=== PATIENT | female | born 1965 | race Caucasian/White ===

== ENCOUNTER 2022-05-19 01:48 | Emergency (ER) | payer BC, SELFPAY ==
--- NOTE | 2022-05-19 | ECG_ITS ---
Test Reason : sob Blood Pressure : / mmHG Vent. Rate : 095 BPM Atrial Rate : 095 BPM P-R Int : 150 ms QRS Dur : 080 ms QT Int : 350 ms P-R-T Axes : 034 000 028 degrees QTc Int : 439 ms Normal sinus rhythm Nonspecific ST abnormality Borderline ECG No previous ECGs available Referred By: Generic ED Physician Electronically Signed By:JERAMIE AMBROCIO
--- NOTE | ~2022-05-19 | XR_ITS ---
EXAMINATION: XR CHEST CLINICAL INFORMATION: Short of breath COMPARISON: None TECHNIQUE: Frontal view of the chest was obtained. FINDINGS: The lungs are well expanded. There is no focal consolidation, edema, or effusion. No pneumothorax. The cardiomediastinal silhouette is within normal limits. No acute osseous abnormality. XR/XR chest 1V IMPRESSION: Clear lungs.
[2022-05-19 02:00] VITALS: BP 189/122; PULSE 98; RESP 20; TEMP 36.8; O2SAT 100; BMI 38.9
--- NOTE | 2022-05-19 02:50 | ED.GENADULT ---
HPI - General Adult General Chief complaint: General Medical Stated complaint: chest tightening ? shaky, lung & back pain Time Seen by Provider: 05/19/22 02:42 Source: patient Mode of arrival: ambulatory Limitations: no limitations History of Present Illness HPI narrative: Patient comes to the emergency room complaining of 5 days of anxiety, epigastric burning sensation. Patient states that she has been under a lot of stress, patient's was diagnosed approximately 3 months ago with Guillain-[place] and is currently in a rehab facility. Also, patient was diagnosed with COVID-19 2 weeks ago. Patient states that tonight she was very stressed because her teenage daughter was on her 1st date Related Data Allergies Allergy/AdvReac Type Severity Reaction Status Date / Time No Known Allergies Allergy Verified 05/19/22 02:03 [facility] Social History Social History Advance Directives: No Advance Directives Information Provided: Yes Physical Exam ED Vital Signs: Vital Signs - 24 hr 05/19/22 02:00 05/19/22 03:14 Temperature 98.2 F 98.2 F Pulse Rate 98 78 Respiratory Rate 20 16 Blood Pressure 189/122 H 175/93 H Pulse Oximetry 100 98 Oxygen Delivery Method Room Air Room Air BMI result Body Mass Index 38.9 Const Other: Appearance: Alert. Oriented X3. No acute distress. Eyes: Pupils equal, round and reactive to light. ENT: Pharynx normal. Neck: Normal inspection. Neck supple. No lymph nodes noted. No crepitus CVS: Normal heart rate and rhythm. Pulses normal. Normal S1 and S2 Respiratory: No respiratory distress. Breath sounds normal. No Wheezing. No rales Abdomen: Soft and nontender. No rigidity. No distention. Skin: Skin warm and dry. Normal skin color. Normal skin turgor. Extremities: No lower extremity edema. No Lacerations. No Rash Neuro: Oriented X 3. No motor deficit. No sensory deficit. Moving all extremities. No slurred speech. CN 2 through 12 grossly intact Psych: calm, cooperative, anxious Course Course Course Narrative: Labs and imaging pending. Patient seems to have a lot of anxiety I discussed the labs and imaging with the patient, after discussing the results with the patient, patient states that she feels more relaxed. No symptoms at this time. Medical Decision Making Lab Data Result diagrams: 05/19/22 03:28 08/13/22 03:28 Labs: Lab Results 05/19/22 05/19/22 05/19/22 Range/Units 03:28 03:28 03:28 WBC 10.1 (4.8-10.8) X10*3/uL RBC 4.86 (4.20-5.50) X10*6/uL Hgb 13.3 (12.0-16.0) g/dl Hct 40.8 (37.0-47.0) % MCV 84.0 (80.0-98.0) fL MCH 27.4 (27.0-33.0) pg MCHC 32.6 (31.0-35.0) g/dl RDW 13.1 (11.0-16.0) % Plt Count 238 (160-400) X10*3/uL MPV 9.0 L (9.4-12.3) fL Immature Gran % (Auto) 0.6 H (0.0-0.4) % Neut % (Auto) 76.2 H (45-73) % Lymph % (Auto) 14.0 L (20-40) % [place] % (Auto) 6.2 (2-11) % Eos % (Auto) 2.7 (0-4) % Baso % (Auto) 0.3 (0-2) % Lymph # (Auto) 1.4 (1.2-4.9) X10*3/uL [place] # (Auto) 0.6 (0.1-1.2) X10*3/uL Eos # (Auto) 0.3 (0.0-0.4) X10*3/uL Baso # (Auto) 0.0 (0.0-0.2) X10*3/uL Abs Immat Gran (auto) 0.06 H (0.00-0.03) X10*3/uL Absolute Neuts (auto) 7.7 (2.0-8.3) x10*3/uL Absolute Nucleated RBC 0.000 (0.0-0.012) X10*3/uL Nucleated RBC % (auto) 0.0 (0.0-0.2) /100WBC Sodium 144 (135-145) mmol/L Potassium 4.3 (3.3-5.1) mmol/L Chloride 109 H (96-108) mmol/L Carbon Dioxide 24 (22-29) mmol/L Anion Gap 15 (12-20) BUN 18 H (9-16) mg/dL Creatinine 0.78 (0.5-1.4) mg/dL Estim Creat Clear Calc 90.7 Estimated GFR > 60 Random Glucose 132 H (60-115) mg/dL Calcium 8.8 (8.4-10.2) mg/dL Total Bilirubin 0.6 (0.0-1.0) mg/dL Direct Bilirubin 0.2 (0.0-0.5) mg/dL AST 16 (5-31) U/L ALT 21 (0-31) U/L Alkaline Phosphatase 76 (39-117) U/L Troponin I High Sens < 3.5 (<3.5-17.0) ng/L Total Protein 6.6 (6.5-8.0) g/dL Albumin 4.0 (3.5-5.0) g/dL COVID-19 (CON) (Negative) COVID-19 Clin Com 05/19/22 Range/Units 03:28 WBC (4.8-10.8) X10*3/uL RBC (4.20-5.50) X10*6/uL Hgb (12.0-16.0) g/dl Hct (37.0-47.0) % MCV (80.0-98.0) fL MCH (27.0-33.0) pg MCHC (31.0-35.0) g/dl RDW (11.0-16.0) % Plt Count (160-400) X10*3/uL MPV (9.4-12.3) fL Immature Gran % (Auto) (0.0-0.4) % Neut % (Auto) (45-73) % Lymph % (Auto) (20-40) % [place] % (Auto) (2-11) % Eos % (Auto) (0-4) % Baso % (Auto) (0-2) % Lymph # (Auto) (1.2-4.9) X10*3/uL [place] # (Auto) (0.1-1.2) X10*3/uL Eos # (Auto) (0.0-0.4) X10*3/uL Baso # (Auto) (0.0-0.2) X10*3/uL Abs Immat Gran (auto) (0.00-0.03) X10*3/uL Absolute Neuts (auto) (2.0-8.3) x10*3/uL Absolute Nucleated RBC (0.0-0.012) X10*3/uL Nucleated RBC % (auto) (0.0-0.2) /100WBC Sodium (135-145) mmol/L Potassium (3.3-5.1) mmol/L Chloride (96-108) mmol/L Carbon Dioxide (22-29) mmol/L Anion Gap (12-20) BUN (9-16) mg/dL Creatinine (0.5-1.4) mg/dL Estim Creat Clear Calc Estimated GFR Random Glucose (60-115) mg/dL Calcium (8.4-10.2) mg/dL Total Bilirubin (0.0-1.0) mg/dL Direct Bilirubin (0.0-0.5) mg/dL AST (5-31) U/L ALT (0-31) U/L Alkaline Phosphatase (39-117) U/L Troponin I High Sens (<3.5-17.0) ng/L Total Protein (6.5-8.0) g/dL Albumin (3.5-5.0) g/dL COVID-19 (CON) Negative (Negative) COVID-19 Clin Com See Note Imaging Data Chest x-ray: Radiologist's impression: FINDINGS: The lungs are well expanded. There is no focal consolidation, edema, or effusion. No pneumothorax. The cardiomediastinal silhouette is within normal limits. No acute osseous abnormality. XR/XR chest 1V IMPRESSION: Clear lungs Discharge Plan Discharge Clinical Impression: Anxiety, Atypical chest pain Patient Disposition: Home, Self-Care Instructions: Anxiety (ED), Chest Pain (DC), Diet for Stomach Ulcers and Gastritis (ED) Additional Instructions: Please follow-up with your primary care physician tomorrow. If you have any worsening or new symptoms, please return to the emergency room or call 911
[2022-05-19 03:14] VITALS: BP 175/93; PULSE 78; RESP 16; TEMP 36.8; O2SAT 98
[2022-05-19 03:35] LABS: MANUAL DIFF FLAG NO
[2022-05-19 03:36] LABS: Basophils Percent Auto 0.3 % (0-2); Eosinophils Absolute Auto 0.3 X10*3/uL (0.0-0.4); Eosinophils Percent Auto 2.7 % (0-4); Hematocrit 40.8 % (37.0-47.0); Hemoglobin 13.3 g/dl (12.0-16.0); Imm Gran Abs Auto 0.06 X10*3/uL (0.00-0.03); Imm Gran Pct Auto 0.6 % (0.0-0.4); Lymphocytes Absolute Auto 1.4 X10*3/uL (1.2-4.9); Mean Corpuscular HGB Conc 32.6 g/dl (31.0-35.0); Mean Corpuscular Hemoglobin 27.4 pg (27.0-33.0); Monocytes Absolute Auto 0.6 X10*3/uL (0.1-1.2); Monocytes Percent Auto 6.2 % (2-11); Neutrophils Absolute Auto 7.7 x10*3/uL (2.0-8.3); Neutrophils Percent Auto 76.2 % (45-73); Platelet Count 238 X10*3/uL (160-400); Red Blood Count 4.86 X10*6/uL (4.20-5.50); Red Cell Distribution Width 13.1 % (11.0-16.0); White Blood Count 10.1 X10*3/uL (4.8-10.8)
[2022-05-19 03:49] LABS: COVID-19 Test Negative (Negative)
[2022-05-19 03:55] LABS: Alanine Aminotransferase 21 U/L (0-31); Alkaline Phosphatase 76 U/L (39-117); Anion Gap 15 (12-20); Aspartate Amino Transferase 16 U/L (5-31); Bilirubin Direct 0.2 mg/dL (0.0-0.5); Bilirubin Total 0.6 mg/dL (0.0-1.0); Blood Urea Nitrogen 18 mg/dL (9-16); Calcium 8.8 mg/dL (8.4-10.2); Carbon Dioxide 24 mmol/L (22-29); Chloride 109 mmol/L (96-108); Creatinine Clr Calc Pharmacy 90.7; Estimated Glomerular Filt Rate > 60; Glucose Random 132 mg/dL (60-115); Potassium 4.3 mmol/L (3.3-5.1); Sodium 144 mmol/L (135-145); Total Protein 6.6 g/dL (6.5-8.0)
[2022-05-19 03:56] LABS: Troponin-I High Sensitivity < 3.5 ng/L (<3.5-17.0)
[2022-05-19 04:39] VITALS: BP 133/81; PULSE 80; RESP 16; TEMP 36.6; O2SAT 98
== END 2022-05-19 04:40 | disposition home or self-care (01) ==
PROVIDERS: Emergency Provider Emergency Medicine; PCP Internal Medicine
DX: F41.9 Anxiety disorder, unspecified (principal); R07.89 Other chest pain; Z20.822 Contact with and (suspected) exposure to COVID-19
CPT/HCPCS: 71045; 80048; 80076; 84484; 85025; 87635; 93005; 99283; 99284

== ENCOUNTER 2022-10-16 08:42 | Outpatient (REF) | payer BC, SELFPAY ==
[2022-10-16 11:19] LABS: MANUAL DIFF FLAG NO
[2022-10-16 11:36] LABS: Basophils Percent Auto 0.4 % (0-2); Eosinophils Absolute Auto 0.2 X10*3/uL (0.0-0.4); Hematocrit 45.3 % (37.0-47.0); Imm Gran Abs Auto 0.04 X10*3/uL (0.00-0.03); Imm Gran Pct Auto 0.6 % (0.0-0.4); Lymphocytes Absolute Auto 1.2 X10*3/uL (1.2-4.9); Lymphocytes Percent Auto 17.5 % (20-40); Mean Corpuscular HGB Conc 30.9 g/dl (31.0-35.0); Mean Corpuscular Hemoglobin 26.9 pg (27.0-33.0); Mean Corpuscular Volume 86.9 fL (80.0-98.0); Mean Platelet Volume 9.6 fL (9.4-12.3); Monocytes Absolute Auto 0.4 X10*3/uL (0.1-1.2); Monocytes Percent Auto 5.6 % (2-11); Neutrophils Absolute Auto 5.1 x10*3/uL (2.0-8.3); Neutrophils Percent Auto 72.9 % (45-73); Platelet Count 259 X10*3/uL (160-400); Red Blood Count 5.21 X10*6/uL (4.20-5.50); Red Cell Distribution Width 13.2 % (11.0-16.0)
[2022-10-16 11:41] LABS: Appearance Urine Clear; Color Urine Yellow; Glucose Urine UA Negative (Negative); Leukocyte Esterase Urine Negative (Negative); Nitrite Urine Negative (Negative); PH 5.5 (5.0-9.0); Specific Gravity - Urine 1.015 (1.005-1.025); Urine Blood Negative (Negative); Urine Ketones Negative (Negative); Urine Protein Trace mg/dL (Neg-Trace)
[2022-10-16 11:42] LABS: Alanine Aminotransferase 25 U/L (0-31); Albumin Level 4.4 g/dL (3.5-5.0); Alkaline Phosphatase 84 U/L (39-117); Anion Gap 14 (12-20); Aspartate Amino Transferase 19 U/L (5-31); Bilirubin Total 0.7 mg/dL (0.0-1.0); Blood Urea Nitrogen 13 mg/dL (9-16); Calcium 9.2 mg/dL (8.4-10.2); Carbon Dioxide 27 mmol/L (22-29); Chloride 107 mmol/L (96-108); Cholesterol 258 mg/dL; Estimated Glomerular Filt Rate > 60; Glucose Fasting 107 mg/dL (60-99); HDL Cholesterol 55 mg/dL; LDL Cholesterol Calculated 181 mg/dl; Potassium 4.4 mmol/L (3.3-5.1); Sodium 144 mmol/L (135-145); Total Protein 7.3 g/dL (6.5-8.0); Triglycerides 110 mg/dL
[2022-10-16 11:45] LABS: Bacteria Urine Trace (None Seen); Hyaline Casts Urine 0-2 /LPF (0-2); RBC Urine 0-2 /HPF (0-2); WBC Urine 0-5 /HPF (0-5)
[2022-10-16 11:56] LABS: Estimated Average Glucose 111 mg/dL; Hemoglobin A1c % 5.5 %
[2022-10-16 12:04] LABS: TSH reflex Free T4 2.44 uIU/mL (0.32-4.0)
== END 2022-10-16 08:43 | disposition home or self-care (01) ==
LOC: HO.HMGCLDS 08:42
PROVIDERS: PCP Internal Medicine; Visit Provider Internal Medicine
DX: Z00.00 Encounter for general adult medical examination without abnormal findings (principal); I10 Essential (primary) hypertension
CPT/HCPCS: 36415; 80053; 80061; 81001; 83036; 84443; 85025

== ENCOUNTER → 2022-10-30 15:53 | Outpatient (REF) | payer BC, SELFPAY | LOC: HO.SL 15:53 | PROVIDERS: PCP Internal Medicine; Visit Provider Internal Medicine | DX: G47.33 Obstructive sleep apnea (adult) (pediatric) (principal); I10 Essential (primary) hypertension | CPT/HCPCS: 95806 ==

== ENCOUNTER 2022-11-10 10:37 | Outpatient (REF) | payer BC, SELFPAY ==
--- NOTE | ~2022-11-10 | MM_ITS ---
EXAMINATION: MM SCREENING DIGITAL BREAST TOMOSYNTHESIS, BILATERAL CLINICAL INFORMATION: Screening. Asymptomatic. The lifetime risk of breast cancer based on the Tyrer-Cuzick Model is 9.9%. COMPARISON: Mammography: July 06, 2020 and studies dating back to October 21, 2013 TECHNIQUE: Digital breast tomosynthesis is performed in both the craniocaudal and mediolateral oblique views along with computer-aided detection (CAD). Synthesized 2D images are generated from the tomosynthesis. Cleavage view also performed. FINDINGS: The breasts are heterogeneously dense, which may obscure small masses (ACR BI-RADS breast composition Category c). There are no significant masses, abnormal calcifications, or other abnormalities. MM/MM tomosynthesis screening BI IMPRESSION: No significant changes ASSESSMENT: BI-RADS 1: Negative RECOMMENDATION: Routine annual mammography screening. This patient's information was entered into a reminder system with a target due date for their next mammogram.
== END 2022-11-10 10:38 | disposition home or self-care (01) ==
LOC: HO.MAMMO 10:37
PROVIDERS: PCP Internal Medicine; Visit Provider Internal Medicine
DX: Z12.31 Encounter for screening mammogram for malignant neoplasm of breast (principal)
CPT/HCPCS: 77063; 77067

== ENCOUNTER → 2022-12-14 07:46 | Outpatient (BNVA) | payer BC, SELFPAY | PROVIDERS: PCP Internal Medicine; Visit Provider Nurse Practitioner Family | DX: Z13.89 Encounter for screening for other disorder (principal) ==

== ENCOUNTER 2022-12-26 07:54 | Outpatient (REF) | payer BC, SELFPAY ==
[2022-12-26 12:38] LABS: Alanine Aminotransferase 27 U/L (0-31); Albumin Level 4.1 g/dL (3.5-5.0); Alkaline Phosphatase 87 U/L (39-117); Anion Gap 12 (12-20); Aspartate Amino Transferase 20 U/L (5-31); Blood Urea Nitrogen 14 mg/dL (9-16); Carbon Dioxide 30 mmol/L (22-29); Chloride 108 mmol/L (96-108); Cholesterol 229 mg/dL; Estimated Glomerular Filt Rate > 60; Glucose Fasting 100 mg/dL (60-99); HDL Cholesterol 52 mg/dL; LDL Cholesterol Calculated 158 mg/dl; Potassium 4.5 mmol/L (3.3-5.1); Sodium 145 mmol/L (135-145); Total Protein 6.6 g/dL (6.5-8.0); Triglycerides 98 mg/dL
== END 2022-12-26 07:55 | disposition home or self-care (01) ==
LOC: HO.HMGCLDS 07:54
PROVIDERS: PCP Internal Medicine; Visit Provider Internal Medicine
DX: I10 Essential (primary) hypertension (principal); E78.5 Hyperlipidemia, unspecified
CPT/HCPCS: 36415; 80053; 80061

== ENCOUNTER → 2023-03-18 09:28 | Outpatient (BNVA) | payer BC, SELFPAY | PROVIDERS: PCP Internal Medicine; Visit Provider Nurse Practitioner Family ==

== ENCOUNTER 2023-03-27 07:40 | Outpatient (REF) | payer BC, SELFPAY ==
[2023-03-27 11:14] LABS: MANUAL DIFF FLAG NO
[2023-03-27 11:23] LABS: Basophils Percent Auto 0.3 % (0-2); Eosinophils Absolute Auto 0.3 X10*3/uL (0.0-0.4); Hematocrit 43.1 % (37.0-47.0); Hemoglobin 13.6 g/dl (12.0-16.0); Imm Gran Abs Auto 0.03 X10*3/uL (0.00-0.03); Imm Gran Pct Auto 0.5 % (0.0-0.4); Lymphocytes Absolute Auto 1.6 X10*3/uL (1.2-4.9); Lymphocytes Percent Auto 26.3 % (20-40); Mean Corpuscular HGB Conc 31.6 g/dl (31.0-35.0); Mean Corpuscular Hemoglobin 27.7 pg (27.0-33.0); Mean Corpuscular Volume 87.8 fL (80.0-98.0); Mean Platelet Volume 9.8 fL (9.4-12.3); Monocytes Absolute Auto 0.4 X10*3/uL (0.1-1.2); Monocytes Percent Auto 6.4 % (2-11); Neutrophils Absolute Auto 3.9 x10*3/uL (2.0-8.3); Neutrophils Percent Auto 62.5 % (45-73); Platelet Count 235 X10*3/uL (160-400); Red Blood Count 4.91 X10*6/uL (4.20-5.50); Red Cell Distribution Width 13.3 % (11.0-16.0); White Blood Count 6.2 X10*3/uL (4.8-10.8)
[2023-03-27 12:15] LABS: Estimated Average Glucose 105 mg/dL; Hemoglobin A1c % 5.3 %
[2023-03-27 12:19] LABS: Alanine Aminotransferase 25 U/L (0-31); Albumin Level 4.1 g/dL (3.5-5.0); Alkaline Phosphatase 79 U/L (39-117); Anion Gap 12 (12-20); Aspartate Amino Transferase 18 U/L (5-31); Bilirubin Total 0.9 mg/dL (0.0-1.0); Blood Urea Nitrogen 20 mg/dL (9-16); Calcium 9.1 mg/dL (8.4-10.2); Carbon Dioxide 27 mmol/L (22-29); Chloride 109 mmol/L (96-108); Cholesterol 202 mg/dL; Estimated Glomerular Filt Rate > 60; Glucose Fasting 96 mg/dL (60-99); HDL Cholesterol 45 mg/dL; LDL Cholesterol Calculated 126 mg/dl; Sodium 144 mmol/L (135-145); Total Protein 7.1 g/dL (6.5-8.0); Triglycerides 156 mg/dL; Vitamin D 25-OH Total 18.9 ng/mL (>30)
== END 2023-03-27 07:41 | disposition home or self-care (01) ==
LOC: HO.HMGCLDS 07:40
PROVIDERS: PCP Internal Medicine; Visit Provider Internal Medicine
DX: I10 Essential (primary) hypertension (principal); E78.5 Hyperlipidemia, unspecified; E66.3 Overweight
CPT/HCPCS: 36415; 80053; 80061; 82306; 83036; 85025

== ENCOUNTER 2023-05-14 11:25 | Outpatient (AMB) | payer BC, SELFPAY ==
--- NOTE | 2023-05-14 11:27 | A.OFFVIS_ITS ---
Intake Vital Signs 05/14/23 11:34 Height 5 ft 3 in Weight 226 lb BMI 40.0 BP 144/78 H Blood Pressure Location Lt brachial Position Sitting Pulse 76 Intake Visit Reasons: Colonoscopy screening Intake Note: Patient new consult for pre colonoscopy screening. Patient cc: acid reflex with burning sensation on and off, loose stool with bloody hemorrhoid. 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 Accompanied by: Spouse Allergies VENFLAXINE Adverse Reaction (Intermediate, Uncoded 03/29/23 09:52) Palpitations, NAUSEA Medication List - Last Reconciled 05/14/23 by Myesha Sesay PA-C CPAP (CPAP Machine/Device) As directed ibuprofen (Motrin IB) 200 mg PO Q6H PRN loratadine 10 mg PO DAILY olmesartan 10 mg (2 x 5 mg) PO DAILY omeprazole 20 mg PO DAILY HPI HPI Comments History of Present Illness Details A very anxious 57-year-old female referred for index screening colonoscopy She has acid reflux/ waterbrash- RAVEN- Cpap-faithfully appetite good- normal bowels She has extreme anxiety-had tried medication however d/cd to side effects declines She has no nausea, vomiting hematemesis, hematochezia fever chills Her is present very supportive [facility] Surgical History [place] teeth removed Family History Mother Diabetes HTN (hypertension) Afib Father Diabetes HTN (hypertension) Hyperlipidemia Aortic aneurysm Family/Other Asthma Social History 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:: , 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, Housing: House Alcohol intake: current Alcohol intake frequency: holidays/special occasions only Patient Tobacco Use Status: Never used Tobacco e-Cigarette/Vaping Use: Never Used service: No Current occupational status: employed Cognitive needs: No Hearing needs: No Vision needs: Yes Review of Systems Const All systems reviewed & are unremarkable except as noted in HPI and below Card Denies chest pain and Denies dyspnea Resp Denies dyspnea GI Denies abdominal pain, Denies change in bowel habits, Reports heartburn, Denies nausea and Denies vomiting Skin/Breast Reports lesions Psych Reports anxiety Physical Exam Vital Signs: Last Vital Signs Pulse 76 05/14/23 11:34 BP 144/78 H 05/14/23 11:34 BMI result Body Mass Index 40.0 Const General: cooperative, healthy appearing, comfortable and no acute distress Orientation/consciousness: patient oriented x3 Limitations: no limitations Eyes Sclerae: sclerae normal Resp Effort & Inspection: normal respiratory effort and able to speak in complete sentences Auscultation: clear to auscultation bilaterally and no wheezes Cardio Rate: regular rate Rhythm: regular rhythm Heart sounds: S1 normal heart sound present and S2 normal heart sound present GI Palpation (GI): Soft to palpation and nontender Auscultation: normal bowel sounds Rectal Exam - Female: deferred Skin Lesions: lesion noted (Multiple nevi) Neuro General: patient oriented x3 Extrem General: Yes full ROM Psych Appearance: well kempt Mental Status: mental status grossly normal Speech and movement: Clear speech present Affect: Anxious affect present Attitude: cooperative Thought process: Normal thought process present Thought content: Normal thought content present Insight: Good insight present (Psych) Judgement: Good judgement present (Psych) Assessment & Plan Assessment & Plan (1) GERD (gastroesophageal reflux disease): Comment: Years acid reflux,-despite PPI though improved Code(s): K21.9 - Gastro-esophageal reflux disease without esophagitis Plan: EGD r/o pud, nonulcer dyspepsia, esophagitis, other endoscopic findings to account for her symptoms (2) Encounter for screening colonoscopy: Code(s): Z12.11 - Encounter for screening for malignant neoplasm of colon Plan: Index screening colonoscopy MiraLax Gatorade prep Plan EGD/ Colonoscopy-anesthesia consult, CPAP Orders: Orders EGD/[place] Combo - GI Use Only Today Medications: New bisacodyl (Dulcolax (bisacodyl)) Take 4 tablets by mouth at 12:00pm the day before your procedure. 20 mg (4 x 5 mg) PO ONCE 1 day 4 tabs 0RF colonoscopy prep Z12.11 - Encounter for screening for malignant neoplasm of colon polyethylene glycol 3350 (Miralax) Take as directed by mouth the day before your procedure. 238 grams PO ONCE 1 day PRN 238 grams 0RF laxative effect Patient Instructions: One very pleasant, extremely anxious 57-year-old female referred for index screening colonoscopy presents with persistent GERD despite PPI Detailed discussion about procedures, need for escorted due to anesthesia rare risks, reinforced importance, Many questions asked, reassured-very receptive present very supportive Encouraged to call with questions or concerns EGD/colon--anesthesia consult- cpap- Coding Level of Care Code New Pt Level 3 (72887) Diagnoses GERD (gastroesophageal reflux disease) K21.9 Encounter for screening colonoscopy Z12.11 Time Spent (min) 50
[2023-05-14 11:34] VITALS: BP 144/78; PULSE 76; BMI 40.0
== END 2023-05-14 13:31 | disposition home or self-care (01) ==
LOC: HO.HGIW 11:25
PROVIDERS: PCP Internal Medicine; Visit Provider Physician Assistant
DX: K21.9 Gastro-esophageal reflux disease without esophagitis (principal); Z01.818 Encounter for other preprocedural examination; Z12.11 Encounter for screening for malignant neoplasm of colon
CPT/HCPCS: 99203

== ENCOUNTER → 2023-05-14 11:25 | Outpatient (BNVA) | payer BC, SELFPAY | PROVIDERS: PCP Internal Medicine; Visit Provider Physician Assistant ==

== ENCOUNTER 2023-08-06 12:52 | Outpatient (AMB) | payer BC, SELFPAY ==
[2023-08-06 13:04] VITALS: BP 130/84; PULSE 78; BMI 39.8
--- NOTE | 2023-08-06 13:04 | MHC.OFFVIS ---
Intake Vital Signs 08/06/23 13:04 Height 5 ft 3 in Weight 224 lb 13.944 oz BMI 39.8 BP 130/84 Blood Pressure Location Lt brachial Position Sitting Pulse 78 Intake Visit Reasons: NPV/Chest Pain/J. 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 More recently the blood pressure has been better controlled on olmesartan therapy 10 mg. She does complain of a occasional orthostatic lightheadedness. Patient has had no syncopal episodes. She had a lot of stress in her life recently including illness of her who had GB syndrome and was paralyzed requiring long treatment. She also had that thought 1 of her colleagues in the school sudden cardiac that due to myocardial infarction. She is concerned about overall heart health. She has been having symptoms of palpitations where she gets rapid heart rate. She is concerned about atrial fibrillation due to her mom's history of atrial fibrillation. She is also concerned about coronary artery disease given her dad's premature CAD. She has not had any exertional chest pain. She noticed exertional shortness of breath but this is not unusual. She has been trying to lose weight with eating better. LDL cholesterol is improved marginally. She does have sleep apnea and currently uses CPAP machine. 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, Housing: House Alcohol intake: current Alcohol intake frequency: holidays/special occasions only Patient Tobacco Use Status: Never used Tobacco e-Cigarette/Vaping Use: Never Used service: No Current occupational status: employed Cognitive needs: No Hearing needs: No Vision needs: Yes Review of Systems Const Denies chills, Denies fatigue, Denies fever(s), Denies frequent falls, Denies weakness, Denies weight gain and Denies weight loss Eyes Denies loss of vision ENT Denies dizziness Card Denies chest pain, Denies leg edema, Denies lightheadedness, Denies palpitations, Denies dyspnea, Denies dyspnea on exertion, Denies orthopnea and Denies other (loss of consciousness) Resp Denies cough, Denies dyspnea, Denies dyspnea on exertion and Denies wheezing GI Denies hematochezia and Denies change in stool character Denies urinary frequency and Denies dysuria Musc Denies abnormal gait, Denies muscle weakness, Denies numbness, Denies radiating pain into limb and Denies tingling Skin/Breast Denies nail changes and Denies rash Neuro Denies abnormal gait, Denies dizziness, Denies frequent falls, Denies loss of vision, Denies memory loss, Denies numbness, Denies tingling and Denies weakness Psych Denies depression and Denies memory loss Endo Denies fatigue and Denies palpitations Navjot/Lymph Reports easy bruising and Reports other (anemia) Aller/Immun Denies wheezing Physical Exam Vital Signs: Last Vital Signs Pulse 78 08/06/23 13:04 BP 130/84 08/06/23 13:04 BMI result Body Mass Index 39.8 Const General: cooperative, comfortable, no acute distress, alert, awake and anxious Nutritional Appearance: obese Orientation/consciousness: patient oriented x3 Limitations: no limitations HEENT Head: Yes normocephalic and Yes atraumatic Neck Neck: Yes trachea midline, Yes supple and Yes no JVD Resp Effort & Inspection: normal respiratory effort Auscultation: clear to auscultation bilaterally Cardio Jugular venous distension: no JVD Palpation: normal PMI Rate: regular rate Rhythm: regular rhythm Heart sounds: S1 normal heart sound present, S2 normal heart sound present, no click, no gallops, no murmurs and no rubs GI Auscultation: normal bowel sounds Skin General skin exam: no rashes or lesions noted Neuro General: patient oriented x3 and no focal motor deficits Extrem General: Yes no clubbing, cyanosis or edema Office Procedures EKG Details: EKG shows normal sinus rhythm with sinus arrhythmia otherwise normal EKG 28200-[id number], Complete Assessment & Plan Assessment & Plan (1) Palpitations: Code(s): R00.2 - Palpitations Plan: Patient with predominantly symptoms of palpitation irregular heartbeat which could represent atrial fibrillation given her multiple risk factors including hypertension, obesity, sleep apnea as well as family history. She has also has anxious personality which can potentiate. Advise echocardiogram to evaluate for LV structure and function biatrial chamber size given her multiple risk factors. Also advise a 7 day Holter monitor. If seven-day Holter monitor is unremarkable, would pursue smart phone based EKG monitoring. Continue risk factor modification aggressive control blood pressures advised regular pressure is currently well optimized. Continue CPAP therapy for sleep apnea. Continue participate in weight loss program. Avoidance of stimulants such as caffeine alcohol was discussed. Stress mitigation strategies to be pursued. (2) Hypertension: Code(s): I10 - Essential (primary) hypertension Plan: Hypertension which is currently well optimized olmesartan therapy. We discussed management of hypertension details. Continue participate in heart healthy lifestyle with weight reduction. Continue CPAP therapy. Continue low-salt diet. Advised to monitor blood pressure at home maintain a log. Advised to increase fluid intake for orthostatic lightheadedness. Given her strong family history for premature coronary artery disease hyperlipidemia, obesity and hypertension advised a coronary calcium score for further screening for coronary disease. Further treatment based on the findings. Will follow up in the clinic in 6 weeks time, sooner p.r.n.. Thank you for allowing me to partake in her care Orders: Orders CT Coronary Calcium Score 1 Week I10 - Essential (primary) hypertension CA echo transthoracic complete Today R00.2 - Palpitations ECG 7 day holter monitor Today R00.2 - Palpitations Coding Level of Care Code New Pt Level 4 (63149) Diagnoses Palpitations R00.2 Hypertension I10 CPT Codes EKG - CPT: 78205-[id number], Complete ([id number])
== END 2023-08-06 13:50 | disposition home or self-care (01) ==
PROVIDERS: PCP Internal Medicine; Visit Provider Internal Medicine Cardiovascular Disease
DX: R00.2 Palpitations (principal); I10 Essential (primary) hypertension
CPT/HCPCS: 93010; 99204

== ENCOUNTER → 2023-08-06 12:52 | Outpatient (BNVA) | payer BC, SELFPAY | PROVIDERS: PCP Internal Medicine; Visit Provider Internal Medicine Cardiovascular Disease | DX: R00.2 Palpitations (principal); I10 Essential (primary) hypertension | CPT/HCPCS: 93005 ==

== ENCOUNTER → 2023-08-16 08:22 | Outpatient (REF) | payer BC, SELFPAY ==
--- NOTE | 2023-08-16 08:27 | HM_ITS ---
Conclusion: 1. Patient was monitored for total period of 7 days 2. Baseline was normal sinus rhythm with average heart of 86 beats per minute 3. Rare PACs and occasional PVCs noted 4. No significant pauses noted 5. Patient reported to events of fluttering chest correlated with isolated PVCs MTDD
== END ==
LOC: HO.CARD 08:22
PROVIDERS: PCP Internal Medicine; Visit Provider Internal Medicine Cardiovascular Disease
DX: R00.2 Palpitations (principal)
CPT/HCPCS: 93242

== ENCOUNTER → 2023-08-16 08:27 | Outpatient (BNV) | payer BC, SELFPAY | PROVIDERS: PCP Internal Medicine; Visit Provider Internal Medicine Cardiovascular Disease | DX: I49.3 Ventricular premature depolarization (principal) | CPT/HCPCS: 93244 ==

== ENCOUNTER → 2023-08-28 14:43 | Outpatient (REF) | payer BC, SELFPAY ==
--- NOTE | 2023-08-28 14:47 | CA_ITS ---
Transthoracic Echocardiogram Patient (Last, First, Middle): Johnna Gordon M Gender: Female Date of : 1965 Age: 57 Procedure Date: 08/28/2023 Procedure Type: Transthoracic Echocardiogram Location: OP Height: 160.02 cm Weight: 101.15 kg BSA: 2.03 m2 Heart Rate: bpm BP: 138 / 80 mmHg String Cutter: TO Referring MD: Jame Harley MD Symptoms: R00.2 - Palpitations Study Quality: Fair Conclusions: - Normal left ventricular size, thickness, systolic function, and wall motion. The visually estimated ejection fraction is between 55-60%. - Normal right ventricular cavity size and systolic function. - There is mild dilatation of the ascending aorta measuring 3.50 cm. Findings Left Ventricle Normal left ventricular size, thickness, systolic function, and wall motion. The visually estimated ejection fraction is between 55-60%. Diastolic function is indeterminate on the basis of available data. E/E prime ratio is between 8 and 15 consistent with indeterminate filling pressures. Right Ventricle Normal right ventricular cavity size and systolic function. Atria The left atrium is normal in size. The right atrium is normal in size. Aortic Valve Normal aortic valve structure and function. There is no aortic valve stenosis. There is no aortic valve regurgitation. Mitral Valve Normal mitral valve structure and function. There is no mitral valve regurgitation. There is no mitral valve stenosis. Pulmonic Valve Normal pulmonic valve structure and function. There is no pulmonic valve regurgitation. Tricuspid Valve Normal tricuspid valve structure. There is no tricuspid valve regurgitation. Tricuspid regurgitation envelope is inadequate for calculation of right ventricular systolic pressure. Normal right atrial pressure. There is no evidence of pulmonary hypertension. Great Vessels There is mild dilatation of the ascending aorta measuring 3.50 cm. The visualized portions of the pulmonary artery and branches are normal. Venous The inferior vena cava is normal in size and collapses greater than 50% with inspiration. Pericardium/Pleural There is no evidence of pericardial effusion. Prior Study Comparison No prior study available for comparison. Measurements 2D Linear Measurements IVSd: 1.19 0.6-0.9/0.6-1.0 cm LVIDd: 4.56 3.9-5.3/4.2-5.9 cm LVIDd Index: 2.25 2.4-3.2/2.2-3.1 cm/m2 LVIDs: 2.79 2.0-3.6 cm LVPWd: 0.81 0.7-1.1 cm LA Diam: 3.20 2.7-3.8/3.0-4.0 cm LAIDs Index: 1.58 1.5-2.3 cm/m2 LV Mass: 195.12 67-162/88-224 g LV Mass Index: 96.12 43-95/49-115 g/m2 LVOT Diam: 2.00 3.0+(-)1.3 cm 2D Systolic Function EF 4C: 55.60 >55% EF 2C: 59.30 >55% EF BiP: 56.80 >55% Mitral Valve MV VTI: 0.20 MV Pk Lazarus: 0.75 MV Mn Lazarus: 0.55 MV Pk Grad: 2.00 MV Mn Grad: 1.00 MV Pk E: 0.66 MV PK A: 0.64 MV Decel Time: 199.00 E/A: 1.00 E'Lateral: 8.38 E'Medial: 5.33 E/E' Med: 12.30 E/E' Lat: 7.80 PHT: 58.00 MVA PHT: 3.79 MVA Continuity: 3.00 Decel Holmes: 3.29 Aortic Valve AoV Pk Lazarus: 1.29 AoV Mn Lazarus: 0.89 AoV VTI: 0.27 AoV Pk Grad: 7.00 Aov Mn Grad: 4.00 CAESAR Cont.VTI: 2.24 LVOT LVOT Pk Lazarus: 0.84 LVOT Mn Lazarus: 0.56 LVOT VTI: 0.19 LVOT Pk Grad: 3.00 LVOT Mn Grad: 2.00 LVOT Diam: 2.00 LVOT Area: 3.14 Diastolic Function MV Pk E: 0.66 MV Pk A: 0.64 E/A: 1.00 E'Medial: 5.33 E/E' Med: 12.30 E' Laterial: 8.38 E/E' Lat: 7.80 Right Ventricle TAPSE (mm): 18.40 TVS' Lazarus: 8.11 Tricuspid Valve RA Press: 3.00 Great Vessels Aorta Sinus of Valsalva: 3.04 2.0-3.[address] [place]: 2.60 1.7-3.4 cm Ao Asc: 3.50 2.1-3.4 cm Updated in Other Vendor System with Status of Final Carrington Balderrama MD electronically signed on 08/29/2023 2:23:20 PM with status of Final
== END ==
LOC: HO.CARD 14:43
PROVIDERS: PCP Internal Medicine; Visit Provider Internal Medicine Cardiovascular Disease
DX: R00.2 Palpitations (principal)
CPT/HCPCS: 93306

== ENCOUNTER → 2023-08-28 14:47 | Outpatient (BNV) | payer BC, SELFPAY | PROVIDERS: PCP Internal Medicine; Visit Provider Internal Medicine Cardiovascular Disease | DX: R00.2 Palpitations (principal) | CPT/HCPCS: 93306 ==

== ENCOUNTER 2023-09-12 15:20 | Outpatient (AMB) | payer BC, SELFPAY ==
--- NOTE | 2023-09-12 15:25 | MHC.OFFVIS ---
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 No new symptoms at current time. Denies any exertional chest pain. No shortness of breath. Her coronary calcium score 6 in the LAD territory. Her last LDL is 126 mg/dL. She has started taking rosuvastatin 20 mg daily. 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: House Alcohol intake: current Alcohol intake frequency: holidays/special occasions only Patient Tobacco Use Status: Never used Tobacco e-Cigarette/Vaping Use: Never Used service: No Current occupational status: employed Cognitive needs: No Hearing needs: No Vision needs: Yes Review of Systems Const Denies chills, Denies fatigue, Denies fever(s), Denies frequent falls, Denies weakness, Denies weight gain and Denies weight loss ENT Denies dizziness Card Denies chest pain, Denies leg edema, Denies lightheadedness, Denies palpitations, Denies dyspnea, Denies dyspnea on exertion, Denies orthopnea and Denies other (loss of consciousness) Resp Denies cough, Denies dyspnea and Denies dyspnea on exertion GI Denies hematochezia and Denies change in stool character Musc Denies abnormal gait, Denies muscle weakness, Denies numbness, Denies radiating pain into limb and Denies tingling Neuro Denies abnormal gait, Denies dizziness, Denies frequent falls, Denies numbness, Denies tingling and Denies weakness Endo Denies fatigue and Denies palpitations Physical Exam Vital Signs: Last Vital Signs Pulse 92 09/12/23 15:26 BP 126/84 09/12/23 15:26 BMI result Body Mass Index 39.4 Const General: cooperative, comfortable, no acute distress, alert, awake and anxious Nutritional Appearance: obese Orientation/consciousness: patient oriented x3 Limitations: no limitations HEENT Head: Yes normocephalic and Yes atraumatic Neck Neck: Yes trachea midline, Yes supple and Yes no JVD Resp Effort & Inspection: normal respiratory effort Auscultation: clear to auscultation bilaterally Cardio Jugular venous distension: no JVD Palpation: normal PMI Rate: regular rate Rhythm: regular rhythm Heart sounds: S1 normal heart sound present, S2 normal heart sound present, no click, no gallops, no murmurs and no rubs GI Auscultation: normal bowel sounds Skin General skin exam: no rashes or lesions noted Neuro General: patient oriented x3 and no focal motor deficits Extrem General: Yes no clubbing, cyanosis or edema Assessment & Plan Assessment & Plan (1) Elevated coronary artery calcium score: Code(s): R93.1 - Abnormal findings on diagnostic imaging of heart and coronary circulation Plan: Patient with mildly elevated coronary calcium score in LAD territory suggestive atherosclerosis. She has no exertional chest pain. At this point time continue aggressive medical management including aggressive blood pressure control which is well managed on current therapy. Also advise to continue with statin therapy with target goal LDL closer to 60 mg/dL. She is encouraged to increase her activity level and participate in weight loss program to improve her long-term cardiovascular outcome as well. Her symptoms of palpitations are not present and the workup so far has been benign. No further workup is indicated. Continue participate in stress mitigation strategies. Continue treatment of sleep apnea. Will follow up in the clinic in 1 year's time, sooner p.r.n.. Thank you for allowing me to partake in the care Coding Level of Care Code Est Pt Level 3 (40685) Diagnoses Elevated coronary artery calcium score R93.1
[2023-09-12 15:26] VITALS: BP 126/84; PULSE 92; BMI 39.4
== END 2023-09-12 15:52 | disposition home or self-care (01) ==
PROVIDERS: PCP Internal Medicine; Visit Provider Internal Medicine Cardiovascular Disease
DX: R93.1 Abnormal findings on diagnostic imaging of heart and coronary circulation (principal)
CPT/HCPCS: 99213

== ENCOUNTER → 2023-09-12 15:20 | Outpatient (BNVA) | payer BC, SELFPAY | PROVIDERS: PCP Internal Medicine; Visit Provider Internal Medicine Cardiovascular Disease ==

== ENCOUNTER 2023-10-21 10:20 | Outpatient (REF) | payer BC, SELFPAY ==
[2023-10-21 13:35] LABS: MANUAL DIFF FLAG NO
[2023-10-21 13:46] LABS: Basophils Percent Auto 0.5 % (0-2); Eosinophils Absolute Auto 0.2 X10*3/uL (0.0-0.4); Eosinophils Percent Auto 3.7 % (0-4); Hematocrit 45.7 % (37.0-47.0); Hemoglobin 14.4 g/dl (12.0-16.0); Imm Gran Abs Auto 0.03 X10*3/uL (0.00-0.03); Imm Gran Pct Auto 0.5 % (0.0-0.4); Lymphocytes Absolute Auto 1.5 X10*3/uL (1.2-4.9); Lymphocytes Percent Auto 23.5 % (20-40); Mean Corpuscular HGB Conc 31.5 g/dl (31.0-35.0); Mean Corpuscular Hemoglobin 27.1 pg (27.0-33.0); Mean Corpuscular Volume 86.1 fL (80.0-98.0); Mean Platelet Volume 9.5 fL (9.4-12.3); Monocytes Absolute Auto 0.3 X10*3/uL (0.1-1.2); Monocytes Percent Auto 4.8 % (2-11); Neutrophils Absolute Auto 4.2 x10*3/uL (2.0-8.3); Platelet Count 213 X10*3/uL (160-400); Red Blood Count 5.31 X10*6/uL (4.20-5.50); Red Cell Distribution Width 13.1 % (11.0-16.0); White Blood Count 6.3 X10*3/uL (4.8-10.8)
[2023-10-21 14:15] LABS: Alanine Aminotransferase 27 U/L (0-31); Albumin Level 4.2 g/dL (3.5-5.0); Alkaline Phosphatase 73 U/L (39-117); Anion Gap 13 (12-20); Aspartate Amino Transferase 23 U/L (5-31); Bilirubin Total 0.8 mg/dL (0.0-1.0); Blood Urea Nitrogen 15 mg/dL (9-16); Calcium 9.5 mg/dL (8.4-10.2); Carbon Dioxide 29 mmol/L (22-29); Chloride 105 mmol/L (96-108); Cholesterol 142 mg/dL (<200); Estimated Glomerular Filt Rate > 60; Glucose Fasting 91 mg/dL (60-99); HDL Cholesterol 53 mg/dL (>40); LDL Cholesterol Calculated 65 mg/dL (<100); Potassium 4.7 mmol/L (3.3-5.1); Sodium 142 mmol/L (135-145); Total Protein 7.5 g/dL (6.5-8.0); Triglycerides 122 mg/dL (<150)
[2023-10-21 14:30] LABS: TSH reflex Free T4 2.25 uIU/mL (0.32-4.0)
[2023-10-22 07:13] LABS: Estimated Average Glucose 108 mg/dL; Hemoglobin A1c % 5.4 % (<6.0)
== END 2023-10-21 10:21 | disposition home or self-care (01) ==
LOC: HO.HMGCLDS 10:20
PROVIDERS: Internal Medicine Cardiovascular Disease; PCP Internal Medicine; Visit Provider Internal Medicine
DX: Z00.00 Encounter for general adult medical examination without abnormal findings (principal); E66.3 Overweight; E78.5 Hyperlipidemia, unspecified; I10 Essential (primary) hypertension
CPT/HCPCS: 36415; 80053; 80061; 83036; 84443; 85025

== ENCOUNTER 2023-10-23 07:58 | Outpatient (AMB) | payer BC, SELFPAY ==
[2023-10-23 08:03] VITALS: BP 128/80; PULSE 97; O2SAT 98; BMI 40.0
--- NOTE | 2023-10-23 08:03 | MHC.PC.OV ---
Vital Signs 10/23/23 08:03 Height 5 ft 3 in Weight 226 lb BMI 40.0 BP 128/80 Blood Pressure Location Lt brachial Position Sitting Pulse 97 Pulse Source Pulse Oximeter Pulse Oximetry (%) 98 Oxygen Delivery Method Room Air Intake Visit Reasons: Annual PE Intake Note: Pt is here today for PE. Allergies VENFLAXINE Adverse Reaction (Intermediate, Uncoded 10/23/23 08:05) Palpitations, NAUSEA Tobacco use date assessed: 10/23/23 Dental Screening Dental Screen Date: 10/23/23 Did you have a dental visit in the last 12 months?: Yes Did you have a dental problem in the last 6 months where you did not have access to dental care?: No Was dental information given to patient?: Patient has dentist HPI Annual PE HPI Details Pt presents for PE. Patient underwent cardiac workup for her significant family history for coronary artery disease was found to have elevated coronary calcium score and was started on crestor. 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 How often do you have a drink containing alcohol?: Monthly or less 2. How many drinks containing alcohol do you have on a typical day when you are drinking?: 1 or 2 3. How often do you have six or more drinks on one occasion?: Never Total Score: 1 GENE-7 AMB Questionnaire GENE-7 Date GENE - 7 assessed: 10/23/23 Source: Developed by Drs. Dom Broderick, Lindsay BAlexander Bundy and colleagues, with an educational angelique from [employer]. Review of Systems Const All systems reviewed & are unremarkable except as noted in HPI and below Reports no additional complaints Eyes Reports no additional complaints ENT Reports no additional complaints Card Reports no additional complaints Resp Reports no additional complaints GI Reports no additional complaints Reports no additional complaints Physical exam (Primary Care) Vital Signs: Last Vital Signs Pulse 97 10/23/23 08:03 BP 128/80 10/23/23 08:03 Pulse Ox 98 10/23/23 08:03 Oxygen Delivery Method Room Air 10/23/23 08:03 BMI result Body Mass Index 40.0 Tobacco/Smoking Status: Tobacco use Status Tobacco use date assessed 10/23/23 10/23/23 08:10 Patient Tobacco Use Status Never used Tobacco 10/23/23 08:10 e-Cigarette/Vaping Use Never Used 10/23/23 08:10 PHQ-9: PHQ-9 Score PHQ-9: Total score 1 10/23/23 08:10 Thrive Assessment: Date of Thrive Assessment Date Thrive assessed 10/23/23 10/23/23 08:10 Const General: no acute distress HENMT Ears: hearing grossly normal bilaterally Mouth: Normal oral and palatal mucosa present Eyes General: appearance normal, both eyes and all related structures Resp Effort & Inspection: normal respiratory effort Auscultation: clear to auscultation bilaterally Cardio Rhythm: regular rhythm Heart sounds: S1 normal heart sound present and S2 normal heart sound present GI Inspection: Yes normal to inspection Palpation (GI): Soft to palpation Percussion: Yes normal to percussion Auscultation: normal bowel sounds Assessment and Plan Assessment & Plan (1) Hypertension: Code(s): I10 - Essential (primary) hypertension Plan: Continue olmesartan low-sodium diet increase physical activity and weight loss discussed with the pt (2) Annual physical exam: Code(s): Z00.00 - Encounter for general adult medical examination without abnormal findings Plan: Well-balanced diet weight loss increase physical activity discussed with the patient. She is up-to-date with the mammogram will have colonoscopy and EGD for chronic GERD (3) Hyperlipemia: Code(s): E78.5 - Hyperlipidemia, unspecified Plan: Continue Crestor , follow-up in 6 months with a fasting labs before Orders: Orders Comprehensive [place]. Panel Fast 6 Months E78.5 - Hyperlipidemia, unspecified, I10 - Essential (primary) hypertension, Z00.00 - Encounter for general adult medical examination without abnormal findings Lipid Panel 6 Months E78.5 - Hyperlipidemia, unspecified, I10 - Essential (primary) hypertension, Z00.00 - Encounter for general adult medical examination without abnormal findings Vitamin D 25-OH Total 6 Months E78.5 - Hyperlipidemia, unspecified, I10 - Essential (primary) hypertension, Z00.00 - Encounter for general adult medical examination without abnormal findings Complete Blood Count Auto Diff 6 Months E78.5 - Hyperlipidemia, unspecified, I10 - Essential (primary) hypertension, Z00.00 - Encounter for general adult medical examination without abnormal findings Coding Level of Care Code Est Pt Prev Care 40-64y(87383) Diagnoses Hypertension I10 Annual physical exam Z00.00 Hyperlipemia E78.5
== END 2023-10-23 08:44 | disposition home or self-care (01) ==
PROVIDERS: PCP Internal Medicine; Visit Provider Internal Medicine
DX: I10 Essential (primary) hypertension (principal); Z00.00 Encounter for general adult medical examination without abnormal findings; E78.5 Hyperlipidemia, unspecified
CPT/HCPCS: 99396

== ENCOUNTER 2023-11-05 07:26 | Day surgery (SDC) | payer BC, SELFPAY ==
[2023-11-01 14:16] VITALS: BMI 40.0
--- NOTE | 2023-11-05 07:29 | MHC.SHP ---
Pre-Procedural Eval Section A - 24 Hr Update-Section A only Date of Service: 11/05/23 Section B - Complete if H&P > 30 days Chief Complaint: Gastro-esophageal reflux disease without esophagit Details of Present Illness: screening colonoscopy --father had colon polyps Relevant Family History (Specify if Yes): Yes Relevant Social History: None Present Medications: see Short Stay Collaborative assessment Medical History: Significant History (Ascending aorta dilatation Anxiety Palpitations GERD (gastroesophageal reflux disease) Sleep apnea Elevated cholesterol HTN (hypertension)) History of Previous Operations: Relevant previous surgery/procedure and date(s) ([place] teeth removed) Allergies: Allergies Allergy/AdvReac Type Severity Reaction Status Date / Time venlafaxine Allergy Intermediate palpitation Verified 11/01/23 14:09 s/nausea Review of Systems Sugical H&P ROS: Negative: Constitution, Cardiovascular, Respiratory, Neurological, Psychiatric, Hem-Onc, Allergic/Immunologic, Gastrointestinal, Genitourinary, Musculoskeletal, Integumentary, Endocrine and Eyes/Ears/Nose/Throat Exam Surgical H&P Exam: Normal: HEENT, Normal: Heart, Normal: Lungs, Normal: Extremities, Normal: Abdomen, Normal: Skin and Normal: Neurological Plan Diagnosis/Plan: Unchanged I have reviewed the history and physical and performed a pertinent physical examination on my patient. No changes have occurred unless specified. Time Spent With Patient Time: Total time managing care of this patient today ____ minutes.
[2023-11-05] MEDS: Lactated Ringers 1,000 ML 80 ML IVCONT (07:48)
--- NOTE | 2023-11-05 07:51 | P.CONAN_ITS ---
HPI - Anesthesia Eval Consult details Narrative: 57 yo female patient for EGD, Colonoscopy PMF Active Problems Active Problems: All Active Problems (Updated 11/05/23 @ 07:52 by Germaine Cole MD) Elevated coronary artery calcium score (Acute) Palpitations (Acute) Encounter for screening colonoscopy (Acute) GERD (gastroesophageal reflux disease) (Acute)- symptomatic. Last took prilosec in 04/2023 Exertional chest pain (Acute) Morbid Obesity BMI 40 Hyperlipemia (Acute) Severe sleep apnea (Acute) Normal pelvic exam (Acute) Hypertension (Acute) Annual physical exam (Acute) Anxiety (Acute) Cardiac w/u secondary to mid-chest spasms- Negative. 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, Housing: House Alcohol intake: current Alcohol intake frequency: holidays/special occasions only Patient Tobacco Use Status: Never used Tobacco e-Cigarette/Vaping Use: Never Used Are you DNR?: No Advance Directives: No Advance Directives Information Provided: Yes Nutrition Risks: No Nutritional Risk service: No Current occupational status: employed Cognitive needs: No Hearing needs: No Vision needs: Yes Meds Allergies Allergy/AdvReac Type Severity Reaction Status Date / Time venlafaxine Allergy Intermediate palpitation Verified 11/05/23 07:54 s/nausea Active Medications: Current Medications Lactated Ringer's (Lr) 1,000 mls @ 80 mls/hr IVCONT .[id number] PRUDENCE Last Admin: 11/05/23 07:48 Dose: 80 mls/hr Home Medications Medication Instructions Recorded Confirmed Last Taken Type ibuprofen 200 mg tablet (Motrin IB) 200 mg PO Q6H PRN Pain 10/16/22 11/01/23 Unknown History loratadine 10 mg tablet 10 mg PO DAILY 10/16/22 11/01/23 Unknown History CPAP (CPAP Machine/Device) 12/28/22 09/12/23 Unknown History Exam Height,Weight and Vital Signs: Height 5 ft 3 in Weight 102.512 kg Vital Signs Temp Pulse Resp BP Pulse Ox O2 Del Method 11/05/23 07:54 97.9 F 110 H 18 162/94 H 97 Room Air Airway Mallampati Class: IV TM Dist: >3cm Neck ROM: Full Loose/Missing/Broken Teeth: Yes (Crowns intact. Missing molars and 1 tooth upper left back) Heart: RRR Lungs: CTAB Assessment and Plan Assessment Anesthesia Assessment: Anesthesia Plan Discussed and Chart Reviewed Final Anesthetic Review Family History of Problems with Anesthesia: No History of Problems with Anesthesia: No NPO: Yes ASA Class: III Final Preanesthetic Review: No Changes in Pt Med Stat, Meds/Allgs Chart Review ed, Consent Obtained/Reviewed and Anes Risks/Benef Reviewed Patient Risk: Intermediate Procedure Risk: Low Assessment/Block/Sedation in SS: Assess/Block/Sedation-SS Anesthetic Plan Anesthetic Plan: GA and TIVA Disposition: Standard PACU
[2023-11-05 07:54] VITALS: BP 162/94; PULSE 110; RESP 18; TEMP 36.6; O2SAT 97
--- NOTE | 2023-11-05 08:19 | W.PM.OPN ---
Operative Note Operative Note Date of Service: 11/05/23 Narrative: Operative Information Procedure Description: EGD, Colonoscopy Indication: GERD and colon screening Anesthesia: GA (due to hx of gagging and bile reflux) FLEXIBLE TRANSORAL UPPER GASTROINTESTINAL ENDOSCOPY AND COLONOSCOPY PROCEDURE NOTE UPPER ENDOSCOPY Consent: Indications for the procedure and potential complications of bleeding, perforation, reaction to medications and missed diagnosis were discussed with the patient and informed consent was obtained. Instrument: Olympus GIF H 190 J mid size upper endoscope Monitoring: Vital signs and clinical assessment, continuous EKG monitoring, Pulse oximetry, Carbon Dioxide monitoring and blood pressure monitoring were done throughout the procedure. Procedure: The patient was placed in the left lateral decubitis position and pre-procedure medications were administered and a bite block was placed. The endoscope was inserted into the mouth and advanced under direct vision to the third part of duodenum. A careful inspection was made as the upper endoscope was withdrawn including a retroflexed examination of the proximal stomach; Findings and interventions are described below. Findings: Larynx:normal Esophagus: GE junction at 40 cm, diaphragm hiatus at 40 cm, bogginess and erythema with edema at GEJ, bx taken as well as from distal and proximal esophagus Stomach: Patchy erythema with erosion seen at antrum. Biopsies were obtained. Grade 2 flap valve on retroflexed examination of the cardia. Several benign fundic gland polyps seen Duodenum: Mild duodenitis, bx taken Intervention: Biopsies as noted above COLONOSCOPY Instrument: Olympus variable stiffness pediatric scope 190L Colonoscopy Monitoring: Vital signs and clinical assessment, continuous EKG monitoring, Pulse oximetry, Carbon Dioxide monitoring and blood pressure monitoring were done throughout the procedure. Colon withdrawal time was 12 minutes. Procedure: The patient was placed in the left lateral decubitis position and pre-procedure medications were administered. After a digital rectal examination of the ano-rectum, the video colonoscope was inserted into the rectum and advanced through the colon to the cecum/TI. The colonoscope was slowly withdrawn in a retrograde panoramic fashion and the colon mucosa was carefully examined including a retroflexed view of the rectum. Findings and interventions are described below. Procedure Difficulty: easy Findings: Terminal Ileum-normal Cecum:normal Right sided retroflexion--nml Ascending Colon: normal Transverse Colon -normal Descending Colon:normal Sigmoid Colon: 10-11 mm sessile polyp removed with cold snare Rectum: Retroflexion with small internal hemorrhoids, grade I with skin tag Anorectum - normal Colon preparation: [place] Bowel Preparation Scale Right colon; 2 Transverse colon: 3 Left colon; 2 (0 = Unprepared colon segment with mucosa not seen due to solid stool that cannot be cleared. 1 = Portion of mucosa of the colon segment seen, but other areas of the colon segment not well seen due to staining, residual stool and/or opaque liquid. 2 = Minor amount of residual staining, small fragments of stool and/or opaque liquid, but mucosa of colon segment seen well. 3 = Entire mucosa of colon segment seen well with no residual staining, small fragments of stool or opaque liquid) Impression and Post Procedure Diagnosis: Endoscopy Findings: gastritis esophagitis duodenitis fundic gland polyps Colonoscopy Findings: polyp internal hemorrhoids Plan: Await Pathology results Repeat Colonoscopy in 5-7 years due to polyp or earlier if clinically indicated High fiber diet leaflet avoid straining at stool, epsom salts and sitz bath, anusol supps or cream check if taking PPI, if not taking shoudl be on PPI, refluc precautions, if H pylori pos then treat Above findings were reviewed with the patient and relevant handouts were provided if indicated.
[2023-11-05 09:05] VITALS: BP 141/80; PULSE 89; RESP 16; TEMP 36.8; O2SAT 100
[2023-11-05 09:10] VITALS: BP 134/79; PULSE 86; RESP 16; O2SAT 100
[2023-11-05 09:15] VITALS: BP 138/80; PULSE 91; RESP 16; O2SAT 96
[2023-11-05 09:20] VITALS: BP 159/86; PULSE 91; RESP 16; O2SAT 99
== END 2023-11-05 09:59 | disposition home or self-care (01) ==
PROVIDERS: PCP Internal Medicine; Visit Provider Internal Medicine Gastroenterology
PROC: (CPT 45385; principal; 2023-11-05 09:10)
DX: Z12.11 Encounter for screening for malignant neoplasm of colon (principal); Z83.719 Family history of colon polyps, unspecified; D12.5 Benign neoplasm of sigmoid colon; K64.0 First degree hemorrhoids; K64.4 Residual hemorrhoidal skin tags; K21.9 Gastro-esophageal reflux disease without esophagitis; K20.90 Esophagitis, unspecified without bleeding; K29.50 Unspecified chronic gastritis without bleeding; K29.80 Duodenitis without bleeding; K31.7 Polyp of stomach and duodenum; K44.9 Diaphragmatic hernia without obstruction or gangrene; I10 Essential (primary) hypertension; E78.00 Pure hypercholesterolemia, unspecified; G47.33 Obstructive sleep apnea (adult) (pediatric); Z79.1 Long term (current) use of non-steroidal anti-inflammatories (NSAID); Z79.899 Other long term (current) drug therapy; Z99.89 Dependence on other enabling machines and devices; Z88.8 Allergy status to other drugs, medicaments and biological substances
CPT/HCPCS: 45385; 43239; 88305; 88313; 88342; J1100; J2405; J2704

== ENCOUNTER → 2023-11-05 07:26 | Outpatient (BNV) | payer BC, SELFPAY | PROVIDERS: PCP Internal Medicine; Visit Provider Internal Medicine Gastroenterology | DX: Z12.11 Encounter for screening for malignant neoplasm of colon (principal); K63.5 Polyp of colon; K64.0 First degree hemorrhoids; K21.00 Gastro-esophageal reflux disease with esophagitis, without bleeding; K29.80 Duodenitis without bleeding; K29.70 Gastritis, unspecified, without bleeding | CPT/HCPCS: 43239; 45385 ==

== ENCOUNTER 2023-11-18 10:50 | Outpatient (AMB) | payer BC, SELFPAY ==
[2023-11-18 11:02] VITALS: BP 161/84; PULSE 80; BMI 40.1
--- NOTE | 2023-11-18 11:02 | MHC.OFFVIS ---
Intake Vital Signs 11/18/23 11:02 Height 5 ft 3 in Weight 226 lb 10.163 oz BMI 40.1 BP 161/84 H Blood Pressure Location Lt brachial Position Sitting Pulse 80 Intake Visit Reasons: S/P double; Dr. Alejo Intake Note: pt its here for S/P double; Melo Nichols, pt its states that she its feeling good pt states thats she its not having not GI symptoms. Dogman/Woman Required: No Accompanied by: Significant Other Allergies venlafaxine Allergy (Intermediate, Verified 11/05/23 07:54) palpitations/nausea Medication List - Last Reconciled 11/18/23 by Myesha Sesay PA-C CPAP (CPAP Machine/Device) As directed ibuprofen (Motrin IB) 200 mg PO Q6H PRN loratadine 10 mg PO DAILY olmesartan 10 mg (2 x 5 mg) PO DAILY pantoprazole 40 mg PO DAILY rosuvastatin 20 mg PO DAILY HPI HPI Comments History of Present Illness Details A 57 y/o Female f/u after EGD for GERD and screening colonoscopy-- here with her She is anxious- many questions- Begn pantoprazole 40 mg after egd- very good response Reviewed procedure reports, pathology ad recommendations. 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 , 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, Housing: House Alcohol intake: current Alcohol intake frequency: holidays/special occasions only Patient Tobacco Use Status: Never used Tobacco e-Cigarette/Vaping Use: Never Used service: No Current occupational status: employed Cognitive needs: No Hearing needs: No Vision needs: Yes Review of Systems Const All systems reviewed & are unremarkable except as noted in HPI and below GI Denies abdominal pain, Reports constipation and Reports heartburn Psych Reports anxiety Physical Exam Vital Signs: Last Vital Signs Pulse 80 11/18/23 11:02 BP 161/84 H 11/18/23 11:02 BMI result Body Mass Index 40.1 Const General: cooperative, healthy appearing, comfortable, no acute distress and anxious Orientation/consciousness: patient oriented x3 Limitations: no limitations Eyes Sclerae: sclerae normal Resp Effort & Inspection: normal respiratory effort and able to speak in complete sentences Skin General skin exam: no rashes or lesions noted Neuro General: patient oriented x3 Extrem General: Yes full ROM Psych Appearance: grossly normal and well kempt Speech and movement: Pressured speech present Affect: Anxious affect present Results Reviewed Results Reviewed: Impression and Post Procedure Diagnosis: Endoscopy Findings: gastritis esophagitis duodenitis fundic gland polyps Colonoscopy Findings: polyp internal hemorrhoids Plan: Await Pathology results Repeat Colonoscopy in 5-7 years due to polyp or earlier if clinically indicated High fiber diet leaflet avoid straining at stool, epsom salts and sitz bath, anusol supps or cream check if taking PPI, if not taking shoudl be on PPI, refluc precautions, if H pylori pos then treat Above findings were reviewed with the patient and relevant handouts were provided if indicated. Name: Johnna Gordon Age/Sex: 57/F Attending: Marcin Alejo MD : 1965 Submitted by: Marcin Alejo MD Copies to: Yuliana Bernard MD MR #: [id number] Status: [facility] Collected: 11/05/23 Location: [facility] Received: 11/05/23 Diagnosis A. Duodenum, biopsy: Duodenal mucosa with predominantly preserved villi and mild features of chronic/non-specific duodenitis. B. Stomach, biopsy: Gastric antral and body mucosa with focal minimal chronic inactive inflammation; negative for H pylori, intestinal metaplasia and dysplasia. C. Gastroesophageal junction, biopsy: Squamous mucosa with hyperplasia and focal intraepithelial eosinophils (up to 3 per high-power field) consistent with reflux esophagitis and columnar mucosa with minimal chronic inactive inflammation; negative for intestinal metaplasia and dysplasia. D. Esophagus, distal, biopsy: Squamous mucosa with mild hyperplasia and scant detached fragment of columnar epithelium; negative for intestinal metaplasia and dysplasia. E. Esophagus, proximal, biopsy: Squamous mucosa with rare intraepithelial eosinophils (up to 1 per high-power field) consistent with esophagitis; no columnar mucosa present. F. Colon, sigmoid, polyp: Serrated polyp with focal features compatible with sessile serrated lesion/ polyp without dysplasia. Clinical History Pre-Op Dx: GERD without esophagitis, screening Post-Op Dx: Esophagitis, ga Assessment & Plan Assessment & Plan (1) GERD (gastroesophageal reflux disease): Comment: pleasant- anxious-Years acid reflux,-good response w/ pantoprazole Code(s): K21.9 - Gastro-esophageal reflux disease without esophagitis Plan: cont. pantoprazole 40 mg- reviewed reflux precautions (2) Serrated polyp of colon: Code(s): K63.5 - Polyp of colon Plan: 5 year repeat colon due to sessile polyp (3) Esophagitis: Code(s): K20.90 - Esophagitis, unspecified without bleeding Plan: pantoprazole 40 F/U 3 months then cut back to 20 mg Plan pantoprazole- 40 mg Medications: New docusate sodium (Colace) 200 mg (2 x 100 mg) PO BEDTIME 60 caps 5RF Refilled pantoprazole 40 mg PO DAILY 60 tabs 2RF Patient Instructions: Asymptomatc colonoscopy 5 years pantoprazole- 40 mg reviewed reflux precautions f/u- consider trial pantorazoe 20 mg- Encouraged to call questions or concerns Coding Level of Care Code Est Pt Level 3 (40945) Diagnoses GERD (gastroesophageal reflux disease) K21.9 Serrated polyp of colon K63.5 Esophagitis K20.90 Time Spent (min) 30
== END 2023-11-18 11:30 | disposition home or self-care (01) ==
PROVIDERS: PCP Internal Medicine; Visit Provider Physician Assistant
DX: K21.9 Gastro-esophageal reflux disease without esophagitis (principal); K63.5 Polyp of colon; K20.90 Esophagitis, unspecified without bleeding
CPT/HCPCS: 99213

== ENCOUNTER → 2023-11-18 10:50 | Outpatient (BNVA) | payer BC, SELFPAY | PROVIDERS: PCP Internal Medicine; Visit Provider Physician Assistant ==

== ENCOUNTER 2023-11-23 10:25 | Outpatient (REF) | payer BC, SELFPAY | END 2023-11-23 10:26 | disposition home or self-care (01) | LOC: HO.MAMMO 10:25 | PROVIDERS: PCP Internal Medicine; Visit Provider Internal Medicine | DX: Z12.31 Encounter for screening mammogram for malignant neoplasm of breast (principal) | CPT/HCPCS: 77063; 77067 ==

== ENCOUNTER → 2023-11-23 10:30 | Outpatient (BNV) | payer BC, SELFPAY | PROVIDERS: PCP Internal Medicine; Visit Provider Radiology Diagnostic Radiology | DX: Z12.31 Encounter for screening mammogram for malignant neoplasm of breast (principal) | CPT/HCPCS: 77063; 77067 ==

== ENCOUNTER 2024-02-17 12:30 | Outpatient (AMB) | payer BC, SELFPAY ==
--- NOTE | 2024-02-17 12:37 | MHC.OFFVIS ---
Vital Signs 02/17/24 12:39 Height 5 ft 3 in Weight 225 lb BMI 39.9 BP 147/72 H Blood Pressure Location Lt brachial Position Sitting Pulse 77 Intake Visit Reasons: 3 month follow up Esophagitis Intake Note: Patient follow up for Esophagitis. Patient denies any GI issues. 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 She is able to pretty much eat anything that she desires. 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 , 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, Housing: House Alcohol intake: current Alcohol intake frequency: holidays/special occasions only Patient Tobacco Use Status: Never used Tobacco e-Cigarette/Vaping Use: Never Used service: No Current occupational status: employed Cognitive needs: No Hearing needs: No Vision needs: Yes Review of Systems Const All systems reviewed & are unremarkable except as noted in HPI and below GI Denies abdominal pain Physical Exam Vital Signs: Last Vital Signs Pulse 77 02/17/24 12:39 BP 147/72 H 02/17/24 12:39 BMI result Body Mass Index 39.9 Const General: cooperative, healthy appearing and comfortable Orientation/consciousness: patient oriented x3 Limitations: no limitations Neuro General: patient oriented x3 Results Reviewed Results Reviewed: 10/2023- Impression and Post Procedure Diagnosis: Endoscopy Findings: gastritis esophagitis duodenitis fundic gland polyps Colonoscopy Findings: polyp internal hemorrhoids Plan: Await Pathology results Repeat Colonoscopy in 5-7 years due to polyp or earlier if clinically indicated High fiber diet leaflet avoid straining at stool, epsom salts and sitz bath, anusol supps or cream check if taking PPI, if not taking shoudl be on PPI, refluc precautions, if H pylori pos then treat Above findings were reviewed with the patient and relevant handouts were provided if indicated. Name: Johnna Gordon Age/Sex: 57/F Attending: Marcin Alejo MD : 1965 Submitted by: Marcin Alejo MD Copies to: Yuliana Bernard MD MR #: [id number] Status: [facility] Collected: 11/05/23 Location: [facility] Received: 11/05/23 Diagnosis A. Duodenum, biopsy: Duodenal mucosa with predominantly preserved villi and mild features of chronic/non-specific duodenitis. B. Stomach, biopsy: Gastric antral and body mucosa with focal minimal chronic inactive inflammation; negative for H pylori, intestinal metaplasia and dysplasia. C. Gastroesophageal junction, biopsy: Squamous mucosa with hyperplasia and focal intraepithelial eosinophils (up to 3 per high-power field) consistent with reflux esophagitis and columnar mucosa with minimal chronic inactive inflammation; negative for intestinal metaplasia and dysplasia. D. Esophagus, distal, biopsy: Squamous mucosa with mild hyperplasia and scant detached fragment of columnar epithelium; negative for intestinal metaplasia and dysplasia. E. Esophagus, proximal, biopsy: Squamous mucosa with rare intraepithelial eosinophils (up to 1 per high-power field) consistent with esophagitis; no columnar mucosa present. F. Colon, sigmoid, polyp: Serrated polyp with focal features compatible with sessile serrated lesion/ polyp without dysplasia. Clinical History Assessment & Plan Assessment & Plan (1) GERD (gastroesophageal reflux disease): Comment: pleasant- anxious-Years acid reflux,-good response w/ pantoprazole 40-will try to wean back to pantoprazole 20 mg Code(s): K21.9 - Gastro-esophageal reflux disease without esophagitis Category: Medical Plan: Trial pantoprazole 20 mg Reviewed reflux precautions Avoid weight gain Plan pantoprazole 20 mg trial- if sx recur- will increase back to 40 mg- Medications: New pantoprazole 20 mg PO QAM 90 tabs 6RF 90 days Patient Instructions: Trial pantoprazole 20 mg Reviewed reflux precautions Avoid weight gain Encouraged to call questions or concerns Coding Level of Care Code Est Pt Level 3 (13184) Diagnoses GERD (gastroesophageal reflux disease) K21.9 Time Spent (min) 37
[2024-02-17 12:39] VITALS: BP 147/72; PULSE 77; BMI 39.9
== END 2024-02-17 13:28 | disposition home or self-care (01) ==
PROVIDERS: PCP Internal Medicine; Visit Provider Physician Assistant
DX: K21.9 Gastro-esophageal reflux disease without esophagitis (principal)
CPT/HCPCS: 99213

== ENCOUNTER → 2024-02-17 12:30 | Outpatient (BNVA) | payer BC, SELFPAY | PROVIDERS: PCP Internal Medicine; Visit Provider Physician Assistant ==

== ENCOUNTER 2024-04-17 10:58 | Outpatient (REF) | payer BC, SELFPAY ==
[2024-04-17 13:08] LABS: MANUAL DIFF FLAG NO
[2024-04-17 13:19] LABS: Basophils Percent Auto 0.5 % (0-2); Eosinophils Absolute Auto 0.3 X10*3/uL (0.0-0.4); Eosinophils Percent Auto 4.3 % (0-4); Hematocrit 41.2 % (37.0-47.0); Hemoglobin 13.2 g/dl (12.0-16.0); Imm Gran Abs Auto 0.02 X10*3/uL (0.00-0.03); Imm Gran Pct Auto 0.3 % (0.0-0.4); Lymphocytes Absolute Auto 1.6 X10*3/uL (1.2-4.9); Lymphocytes Percent Auto 26.1 % (20-40); Mean Corpuscular Hemoglobin 27.3 pg (27.0-33.0); Mean Corpuscular Volume 85.1 fL (80.0-98.0); Mean Platelet Volume 9.8 fL (9.4-12.3); Monocytes Absolute Auto 0.5 X10*3/uL (0.1-1.2); Monocytes Percent Auto 7.6 % (2-11); Neutrophils Absolute Auto 3.7 x10*3/uL (2.0-8.3); Neutrophils Percent Auto 61.2 % (45-73); Platelet Count 207 X10*3/uL (160-400); Red Blood Count 4.84 X10*6/uL (4.20-5.50); Red Cell Distribution Width 13.8 % (11.0-16.0)
[2024-04-17 13:41] LABS: Alanine Aminotransferase 26 U/L (0-31); Albumin Level 4.1 g/dL (3.5-5.0); Alkaline Phosphatase 78 U/L (39-117); Anion Gap 11 (12-20); Aspartate Amino Transferase 19 U/L (5-31); Bilirubin Total 0.9 mg/dL (0.0-1.0); Blood Urea Nitrogen 12 mg/dL (9-16); Calcium 9.6 mg/dL (8.4-10.2); Carbon Dioxide 30 mmol/L (22-29); Chloride 107 mmol/L (96-108); Cholesterol 154 mg/dL (<200); Estimated Glomerular Filt Rate > 60; Glucose Fasting 102 mg/dL (60-99); HDL Cholesterol 54 mg/dL (>40); LDL Cholesterol Calculated 75 mg/dL (<100); Potassium 5.1 mmol/L (3.3-5.1); Sodium 143 mmol/L (135-145); Triglycerides 129 mg/dL (<150)
[2024-04-17 14:02] LABS: Vitamin D 25-OH Total 14.3 ng/mL (>30)
== END 2024-04-17 10:59 | disposition home or self-care (01) ==
LOC: HO.HMGCLDS 10:58
PROVIDERS: PCP Internal Medicine; Visit Provider Internal Medicine
DX: Z00.00 Encounter for general adult medical examination without abnormal findings (principal); I10 Essential (primary) hypertension; E78.5 Hyperlipidemia, unspecified
CPT/HCPCS: 36415; 80053; 80061; 82306; 85025

== ENCOUNTER 2024-04-20 11:11 | Outpatient (AMB) | payer BC, SELFPAY ==
[2024-04-20 11:22] VITALS: BP 120/80; PULSE 92; O2SAT 98; BMI 41.6
--- NOTE | 2024-04-20 11:22 | MHC.PC.OV ---
Vital Signs 04/20/24 11:22 Height 5 ft 3 in Weight 235 lb BMI 41.6 BP 120/80 Blood Pressure Location Lt brachial Position Sitting Pulse 92 Pulse Source Pulse Oximeter Pulse Oximetry (%) 98 Oxygen Delivery Method Room Air Intake Visit Reasons: 6 Month follow up Intake Note: Pt is here today for 6 months follow up visit on labs. Allergies venlafaxine Allergy (Intermediate, Verified 04/20/24 11:23) palpitations/nausea Medication List - Last Reconciled 04/20/24 by Yuliana Bernard MD CPAP (CPAP Machine/Device) As directed docusate sodium (Colace) 200 mg (2 x 100 mg) PO BEDTIME ibuprofen (Motrin IB) 200 mg PO Q6H PRN loratadine 10 mg PO DAILY olmesartan 10 mg (2 x 5 mg) PO DAILY pantoprazole 40 mg PO DAILY rosuvastatin 20 mg PO DAILY Tobacco use date assessed: 04/20/24 Dental Screening Dental Screen Date: 10/23/23 HPI 6 Month follow up HPI Details Pt presents for HTN and hyperlipid, stable on meds. 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 1. Little interest or pleasure in doing things: not at all 2. Feeling down, depressed, or hopeless: not at all 3. Trouble falling or staying asleep, or sleeping too much: not at all 4. Feeling tired or having little energy: not at all 5. Poor appetite or overeating: not at all 6. Feeling bad about yourself - or that you are a failure or have let yourself or your family down: not at all 7. Trouble concentrating on things, such as reading the newspaper or watching television: not at all 8. Moving or speaking so slowly that other people could have noticed. Or the opposite - being so fidgety or restless that you have been moving around a lot more than usual: not at all 9. Thoughts that you would be better off or of hurting yourself in some way: not at all Total score: 0 Depression Screening Interpretation: Negative Depression Screening Done: Yes Source: Developed by Drs. Dom Broderick, Lindsay Barone, Alexander Cisneros and colleagues, with an educational angelique from [employer]. Thrive Questionnaire Date Thrive assessed: 04/20/24 I am a: Patient What is your living situation today?: I have a steady place to live Within the past 12 months, did the food you bought not last and you didn't have the money to get more?: Never true Within the past 12 months, did you worry whether your food would run out before you got money to buy more?: Never true Do you have trouble paying for medicines?: No Do you have trouble getting transportation to medical appointments?: No Do you have trouble paying your heating and electricity bill?: No Do you have trouble taking care of your child, family member or friend?: No Do you have trouble with day-to-day activities such as bathing, preparing meals, shopping, managing finances, etc.?: No Are you currently unemployed and looking for a job?: No Are you interested in more education?: No Please select the resources that you would like help with: Housing/Penitentiary Currently or been in a relationship where the following occur: No concerns reported THRIVE Score: 0 AUDIT C Alcohol Use Questionnaire (AUDIT-C) 1. How often do you have a drink containing alcohol?: Monthly or less 2. How many drinks containing alcohol do you have on a typical day when you are drinking?: 1 or 2 3. How often do you have six or more drinks on one occasion?: Never Total Score: 1 GENE-7 AMB Questionnaire GENE-7 Date GENE - 7 assessed: 04/20/24 Feeling nervous, anxious, or on edge: 0 = Not at all Not being able to stop or control worryin = Not at all Worrying too much about different things: 0 = Not at all Trouble relaxin = Not at all Being so restless that it is hard to sit still: 0 = Not at all Becoming easily annoyed or irritable: 0 = Not at all Feeling afraid as if something awful might happen: 0 = Not at all Total GENE-7 score (0-4 normal; 5-9 mild; 10-14 moderate; 15-21 severe): 0 Source: Developed by Drs. Dom Broderick, Lindsay Barone, Alexander Cisneros and colleagues, with an educational angelique from [employer]. Review of Systems Const All systems reviewed & are unremarkable except as noted in HPI and below ENT Reports no additional complaints Card Reports no additional complaints Resp Reports no additional complaints Reports no additional complaints Physical exam (Primary Care) Vital Signs: Last Vital Signs Pulse 92 04/20/24 11:22 BP 120/80 04/20/24 11:22 Pulse Ox 98 04/20/24 11:22 Oxygen Delivery Method Room Air 04/20/24 11:22 BMI result Body Mass Index 41.6 Tobacco/Smoking Status: Tobacco use Status Tobacco use date assessed 04/20/24 04/20/24 11:23 Patient Tobacco Use Status Never used Tobacco 04/20/24 11:23 e-Cigarette/Vaping Use Never Used 04/20/24 11:23 PHQ-9: PHQ-9 Score PHQ-9: Total score 0 04/20/24 11:39 Depression Screening Interpretation: Negative Thrive Assessment: Date of Thrive Assessment Date Thrive assessed 04/20/24 04/20/24 11:39 Currently or been in a relationship where the following occur: No concerns reported Const General: no acute distress HENMT Mouth: Normal oral and palatal mucosa present Eyes General: appearance normal, both eyes and all related structures Resp Effort & Inspection: normal respiratory effort Auscultation: clear to auscultation bilaterally Cardio Rhythm: regular rhythm Heart sounds: S1 normal heart sound present and S2 normal heart sound present GI Inspection: Yes normal to inspection Palpation (GI): Soft to palpation Percussion: Yes normal to percussion Auscultation: normal bowel sounds Assessment and Plan Assessment & Plan (1) Hyperlipemia: Code(s): E78.5 - Hyperlipidemia, unspecified Plan: cont Crestor, add CoQ10 (2) Hypertension: Code(s): I10 - Essential (primary) hypertension Plan: cont Olmesartan (3) Serrated polyp of colon: Comment: 1 polyp, 10/2023 Dr. Alejo, repeat colonoscopy 5 yrs Code(s): K63.5 - Polyp of colon (4) Esophagitis: Comment: on PPI, EGD 10/2023 Code(s): K20.90 - Esophagitis, unspecified without bleeding Orders: Orders Comprehensive [place]. Panel Fast 6 Months E66.3 - Overweight, E78.5 - Hyperlipidemia, unspecified, I10 - Essential (primary) hypertension Lipid Panel 6 Months E66.3 - Overweight, E78.5 - Hyperlipidemia, unspecified, I10 - Essential (primary) hypertension Complete Blood Count Auto Diff 6 Months E66.3 - Overweight, E78.5 - Hyperlipidemia, unspecified, I10 - Essential (primary) hypertension TSH reflex Free T4 6 Months E66.3 - Overweight, E78.5 - Hyperlipidemia, unspecified, I10 - Essential (primary) hypertension Vitamin D 25-OH Total 6 Months E66.3 - Overweight, E78.5 - Hyperlipidemia, unspecified, I10 - Essential (primary) hypertension Medications: Discontinued pantoprazole Discontinued Reason: Doctor's Order 20 mg PO QAM 90 days 90 tabs 6RF Coding Level of Care Code Est Pt Level 4 (23925) Diagnoses Hyperlipemia E78.5 Hypertension I10 Serrated polyp of colon K63.5 Esophagitis K20.90
== END 2024-04-20 12:31 | disposition home or self-care (01) ==
PROVIDERS: PCP Internal Medicine; Visit Provider Internal Medicine
DX: E78.5 Hyperlipidemia, unspecified (principal); I10 Essential (primary) hypertension; K63.5 Polyp of colon; K20.90 Esophagitis, unspecified without bleeding
CPT/HCPCS: 99214

== ENCOUNTER 2024-06-05 12:15 | Outpatient (AMB) | payer BC, SELFPAY ==
[2024-06-05 12:11] VITALS: BP 144/92; PULSE 91; O2SAT 99; BMI 42.6
--- NOTE | 2024-06-05 12:11 | AM.OFFWIN_ITS ---
Intake Vital Signs 06/05/24 12:11 Height 5 ft 3 in Weight 240 lb 6 oz BMI 42.6 BP 144/92 H Blood Pressure Location Lt brachial Position Sitting Pulse 91 Pulse Source Pulse Oximeter Pulse Oximetry (%) 99 Oxygen Delivery Method Room Air Intake Visit Reasons: EP-rt knee pain and rt ankle swollen Intake Note: Pt presents to the office today for right knee pain x1 week with no known injury. Pt also states she has inflammation in both ankles x3 days. Patient Tobacco Use Status: Never used Tobacco Allergies venlafaxine Allergy (Intermediate, Verified 06/05/24 12:13) palpitations/nausea HPI HPI Comments History of Present Illness Details 58 y/o female patient who presents to [facility] walk [facility] clinic with c/o right knee pain since . Denies injury or trauma. 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, Housing: House Alcohol intake: current Alcohol intake frequency: holidays/special occasions only Patient Tobacco Use Status: Never used Tobacco e-Cigarette/Vaping Use: Never Used service: No Current occupational status: employed Cognitive needs: No Hearing needs: No Vision needs: Yes Review of Systems Const All systems reviewed & are unremarkable except as noted in HPI and below Physical Exam Vital Signs: Last Vital Signs Pulse 91 06/05/24 12:11 BP 144/92 H 06/05/24 12:11 Pulse Ox 99 06/05/24 12:11 Oxygen Delivery Method Room Air 06/05/24 12:11 BMI result Body Mass Index 42.6 Const General: cooperative and comfortable Nutritional Appearance: obese Orientation/consciousness: patient oriented x3 Skin General skin exam: no rashes or lesions noted Neuro General: patient oriented x3, gait normal and moves all extremities Extrem Right lower extremity: knee Details: normal to inspection, normal ROM and knee ligament exam normal; no tenderness, no swelling, no abrasions and no crepitus Left lower extremity: normal to inspection and full ROM Psych Speech and movement: Normal speech and movement present Assessment & Plan Assessment & Plan (1) Strain of right knee: Code(s): S86.911A - Strain of unspecified muscle(s) and tendon(s) at lower leg level, right leg, initial encounter Qualifiers: Encounter type: initial encounter Qualified Code(s): S86.911A - Strain of unspecified muscle(s) and tendon(s) at lower leg level, right leg, initial encounter Plan: NSAIDs and Acetaminophen for pain relief IceHot Knee Brace Ordered Physical therapy. Orders: Orders PT Evaluation and Treatment Today S86.911A - Strain of unspecified muscle(s) and tendon(s) at lower leg level, right leg, initial encounter Medications: New meloxicam 15 mg PO DAILY 60 tabs 0RF S86.911A - Strain of unspecified muscle(s) and tendon(s) at lower leg level, right leg, initial encounter acetaminophen 1,000 mg (2 x 500 mg) PO Q6H PRN 30 caps 0RF pain S86.911A - Strain of unspecified muscle(s) and tendon(s) at lower leg level, right leg, initial encounter cyclobenzaprine 10 mg PO BEDTIME 10 tabs 0RF S86.911A - Strain of unspecified muscle(s) and tendon(s) at lower leg level, right leg, initial encounter lidocaine 4% (Aspercreme (lidocaine)) 1 patch topical DAILY PRN 30 ea 0RF pain S86.911A - Strain of unspecified muscle(s) and tendon(s) at lower leg level, right leg, initial encounter Coding Level of Care Code Est Pt Level 4 (17378) Diagnoses Strain of right knee, initial encounter S86.911A Encounter type: initial encounter Time Spent (min) 20
== END 2024-06-05 13:38 | disposition home or self-care (01) ==
PROVIDERS: PCP Internal Medicine; Visit Provider Nurse Practitioner Family
DX: S86.911A Strain of unspecified muscle(s) and tendon(s) at lower leg level, right leg, initial encounter (principal)
CPT/HCPCS: 99214

== ENCOUNTER 2024-06-05 12:41 | Outpatient (REF) | payer BC, SELFPAY ==
--- NOTE | ~2024-06-05 | XR_ITS ---
EXAMINATION: XR KNEE, RIGHT CLINICAL INFORMATION: 58 y/o female patient with c/o right knee pain for few days. COMPARISON: None TECHNIQUE: AP, lateral, and both oblique views of the right knee. FINDINGS: Bones are osteopenic. Mild tricompartmental osteoarthritis with small marginal osteophytes. No joint space narrowing. Small joint effusion. Enthesopathic spurring at the quadriceps tendon insertion on the patella. Mild soft tissue swelling. XR/XR knee RT 4V IMPRESSION: 1. Mild tricompartmental osteoarthritis in the right knee. 2. Small joint effusion. 3. Osteopenia. 4. No fracture. Electronically signed by: Dustin Nino MD 06/05/2024 03:56 PM EDT RP
== END 2024-06-05 12:42 | disposition home or self-care (01) ==
LOC: HO.HMGCX 12:41
PROVIDERS: PCP Internal Medicine; Visit Provider Nurse Practitioner Family
DX: S86.911D Strain of unspecified muscle(s) and tendon(s) at lower leg level, right leg, subsequent encounter (principal)
CPT/HCPCS: 73564

== ENCOUNTER 2024-08-04 13:26 | Outpatient (AMB) | payer BC, SELFPAY ==
--- NOTE | 2024-08-04 13:33 | MHC.OFFVIS ---
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 She has white coat syndrome, recently started driving on the highway, and experienced a panic attack on the way, however this is a big accomplishment for her. She sleeps watching TV on the couch and then gets up at 11pm to move to the bed and puts on her mask. She averages 6-8 hours of sleep per night and feels more rested on the weekends. She denies difficulty falling asleep or staying asleep. She is napping less frequently during the day and denies TERRY, vision changes, forgetfulness, nausea or vomitting. 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 She cleans the mask and equipment once a week. 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:: , 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, 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 , 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, Housing: House Alcohol intake: current Alcohol intake frequency: holidays/special occasions only Patient Tobacco Use Status: Never used Tobacco e-Cigarette/Vaping Use: Never Used service: No Current occupational status: employed Cognitive needs: No Hearing needs: No Vision needs: Yes Review of Systems Const Reports as per HPI ENT Reports Normal hearing present Neuro Reports Normal hearing present Physical Exam Vital Signs: Last Vital Signs Pulse 90 08/04/24 13:34 BP 156/84 H 08/04/24 13:34 Pulse Ox 95 08/04/24 13:34 Oxygen Delivery Method Room Air 08/04/24 13:34 BMI result Body Mass Index 43.7 Const General: cooperative, healthy appearing and no acute distress Nutritional Appearance: obese Orientation/consciousness: patient oriented x3 Neck Neck: Yes full ROM, Yes trachea midline and Yes supple Resp Effort & Inspection: normal respiratory effort and able to speak in complete sentences Neuro General: patient oriented x3, moves all extremities and no focal motor deficits Cranial nerves: Yes CN's II-XII intact bilaterally, Yes Normal facial strength present, Yes Midline tongue present, Yes Symmetric palate elevation present, Yes Normal hearing present, Yes Ability to bilaterally rotate head present and Yes Ability to bilaterally elevate shoulders present Cognition (Neuro): normal cognition Gait exam (Neuro): Normal gait present Motor exam (neuro): 5/5 motor strength present throughout Psych Appearance: grossly normal Mental Status: mental status grossly normal Speech and movement: Normal speech and movement present Affect: normal affect Attitude: cooperative Assessment & Plan Assessment & Plan (1) Sleep apnea treated with continuous positive airway pressure (CPAP): Code(s): G47.30 - Sleep apnea, unspecified Category: Medical Plan: Sleep Apnea: -Continue using CPAP as indicated, and cleaning all equipment at least weakly, making sure mask is not leaking. -Sleep Hygiene, try to watch TV in the BR instead of the couch so you are not falling asleep on the couch and waking up and moving to the Bedroom at 11pm at night. -For stress eating, recommend seeing a chief mechanical officer for healthy eating habits and better caloric intake choices. -Mg 200 mg daily is helpful for muscle relaxation and Bruxism, along with getting fitted for a mouth gaurd. Coding Level of Care Code Est Pt Level 4 (76415) Est Pt Prev 1-4yr (77054) Diagnoses Sleep apnea treated with continuous positive airway pressure (CPAP) G47.30
[2024-08-04 13:34] VITALS: BP 156/84; PULSE 90; O2SAT 95; BMI 43.7
== END 2024-08-04 14:17 | disposition home or self-care (01) ==
LOC: HO.HSMS 13:27
PROVIDERS: Absent Provider Psychiatry & Neurology Neurology; PCP Internal Medicine; Visit Provider Psychiatry & Neurology Neurology
DX: G47.30 Sleep apnea, unspecified (principal)
CPT/HCPCS: 99214

== ENCOUNTER → 2024-08-04 13:26 | Outpatient (BNVA) | payer BC, SELFPAY | PROVIDERS: Absent Provider Psychiatry & Neurology Neurology; PCP Internal Medicine; Visit Provider Psychiatry & Neurology Neurology ==

== ENCOUNTER 2024-08-13 09:27 | Outpatient (AMB) | payer BC, SELFPAY ==
--- NOTE | 2024-08-13 10:09 | AM.OFFWIN_ITS ---
Intake Vital Signs 08/13/24 10:10 Height 5 ft 3 in Weight 240 lb BMI 42.5 BP 130/90 H Blood Pressure Location Lt brachial Position Sitting Pulse 113 H Pulse Source Pulse Oximeter Temp 100.3 F Temp Source Oral Pulse Oximetry (%) 98 Oxygen Delivery Method Room Air Intake Visit Reasons: EP Laryngitis? Intake Note: Patient here for laryngitis that has been present since this past weekend. Patient Tobacco Use Status: Never used Tobacco Allergies venlafaxine Allergy (Intermediate, Verified 08/13/24 10:10) palpitations/nausea Do you need a note to return to daycare/school/sports/work: No HPI EP Laryngitis? HPI Details This note is constructed using voice recognition software. While every effort has been made to ensure accuracy, automotive electrical helper errors may have been included. The patient is a 58 year old female who presents to the clinic today with sinus congestion, cough, and loss of voice since this weekend. She reports a low- grade fever 99-100. She denies chills, shortness of breath. She does report that the sinus pressure is seems to be pushing down into her teeth on the left side, and she seems to have swelling in her left cheek. 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, Housing: House Alcohol intake: current Alcohol intake frequency: holidays/special occasions only Patient Tobacco Use Status: Never used Tobacco e-Cigarette/Vaping Use: Never Used service: No Current occupational status: employed Cognitive needs: No Hearing needs: No Vision needs: Yes Review of Systems Const All systems reviewed & are unremarkable except as noted in HPI and below Physical Exam Vital Signs: Last Vital Signs Temp 100.3 F 08/13/24 10:10 Pulse 113 H 08/13/24 10:10 BP 130/90 H 08/13/24 10:10 Pulse Ox 98 08/13/24 10:10 Oxygen Delivery Method Room Air 08/13/24 10:10 BMI result Body Mass Index 42.5 Const General: cooperative, healthy appearing, comfortable and no acute distress Orientation/consciousness: patient oriented x3 Limitations: no limitations HEENT Head: Yes normal to inspection Ears: hearing grossly normal bilaterally, external ears normal and TM's normal bilaterally General nose exam: Normal external nose present, Normal nares present, Abnormal mucous membranes and turbinates present erythematous and Nasal discharge present purulent Face and sinus: Yes normal facial exam and Yes sinus tenderness Mouth: Normal oral and palatal mucosa present and moist mucous membranes Throat: Yes posterior oropharynx normal, Yes tonsils normal and Yes uvula midline Eyes General: appearance normal, both eyes and all related structures Neck Neck: Yes normal visual inspection Resp Effort & Inspection: normal respiratory effort, able to speak in complete sentences, Actively coughing, no respiratory distress, not tachypneic, no tripod positioning and no use of accessory muscles Auscultation: clear to auscultation bilaterally Cardio Rate: regular rate Rhythm: regular rhythm Heart sounds: normal S1 and S2 Skin General skin exam: no rashes or lesions noted Neuro General: patient oriented x3 Extrem General: Yes normal to inspection and Yes no clubbing, cyanosis or edema Assessment & Plan Assessment & Plan (1) Sinusitis: Code(s): J32.9 - Chronic sinusitis, unspecified Qualifiers: Sinusitis location: maxillary Chronicity: acute Recurrence: non- recurrent Qualified Code(s): J01.00 - Acute maxillary sinusitis, unspecified Plan: Supportive measures encouraged and reviewed. Advised consideration of sinus rinse if needed. Antibiotic sent to requested pharmacy, advised patient to take antibiotics until completed and not to stop if feeling better, unless the patient has side effects. Advised patient to follow up with primary care provider with worsening or failure to resolve. Plan See above for full details and plan. Orders: Orders SARS-CoV2/FLU/RSV Today J06.9 - Acute upper respiratory infection, unspecified Medications: New amoxicillin-pot clavulanate 875-125 mg 1 tab PO BID 7 days 14 tabs 0RF Coding Level of Care Code Est Pt Level 3 (31085) Diagnoses Acute non-recurrent maxillary sinusitis J01.00 Sinusitis location: maxillary Chronicity: acute Recurrence: non-recurrent
[2024-08-13 10:10] VITALS: BP 130/90; PULSE 113; TEMP 37.9; O2SAT 98; BMI 42.5
== END 2024-08-13 10:49 | disposition home or self-care (01) ==
PROVIDERS: PCP Internal Medicine; Visit Provider Registered Nurse
DX: J01.00 Acute maxillary sinusitis, unspecified (principal)

== ENCOUNTER 2024-08-13 09:27 | Outpatient (REF) | payer BC, SELFPAY ==
[2024-08-13 14:37] LABS: Influenza A PCR NEGATIVE (Negative); Influenza B PCR NEGATIVE (Negative); Resp Syncy Virus RNA Qual PCR NEGATIVE (Negative); SARS COV2 PCR INHOUSE NEGATIVE (Negative)
== END 2024-08-13 09:28 | disposition home or self-care (01) ==
LOC: HO.LNP 09:27
PROVIDERS: PCP Internal Medicine; Visit Provider Registered Nurse
DX: J06.9 Acute upper respiratory infection, unspecified (principal)
CPT/HCPCS: 0241U

== ENCOUNTER 2024-08-18 14:00 | Outpatient (RCR) | payer BC, SELFPAY ==
--- NOTE | 2024-07-06 15:09 | MHC.PT.EP ---
[facility] [place] [facility] [place] [facility] [place] Office [address] [phone] F: [phone] F: [phone] F: [phone] F: [phone] Physical Therapy Plan of Care Date of Evaluation: 07/06/24 Date of Surgery: Diagnosis: strain of right leg muscles and tendons. Assessment: Patient is a 58 year old R handed female who presents with s/s consistent with knee pain. 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 Patient past medical history includes obesity and HTN. Current impairments include pain, balance, flexibility, ROM, strength, activity tolerance and functional mobility. Functional limitations include decreased ability to walk, transfer, negotiate stairs, squat, bend and kneel. Patient is motivated with good rehab potential. Skilled PT will address impairments and functional limitations in order to achieve goals. Frequency and Duration: The patient will be seen 2x/week for 5 weeks Short Term Goals: I with HEP -2 weeks AROM 0-134 and pain free - 3 weeks Able to negotiate stairs step through, max pain 3/10 - 3 weeks. [facility]ci Goals: Strenght 4/5 grossly - 5 weeks LEFS 55/80 - 5 weeks SLB > 10 seconds b/l - 5 weeks Treatment Plan: Modalities to reduce pain, spasms and effusion. Manual therapy to restore motion and function. Therapeutic exercise to improve strength and flexibility. Neuromuscular re-education for posture and balance. Therapeutic activities to return to functional activities of daily living. Electronically signed by: Please sign and return to therapist. Thank you for your referral.
--- NOTE | 2024-12-25 08:05 | MHC.PT.DC ---
[facility] [place] [facility] [employer] [address] [employer] [address] Chris Welsh [address] [phone] F: [phone] F: [phone] F: [phone] F: [phone] Physical Therapy Discharge Report Diagnosis: strain of right leg muscles and tendons. Date of Surgery: Date of Evaluation: 07/06/24 Date of Discharge: 09/06/24 Treatments to Date: 8 Cancellations to Date: No Shows to Date: Discharge Status: Improved Function Independent with HEP Discharge Summary: 08/18/24: I with HEP. LEFS 74/80. She has been motivated and compliant throughout. She has improved with ROM, strength and pain resulting in improvement in functional mobility such as walking, negotiating stairs, standing, and transfers. All questions answered and pt has updated HEP and all necessary bands. We will d/c to HEP at this time. 08/11; Pt has progressed with reduced c/o llanos, imporved ROM and strength. Pt has 1 visit remaining before DC. 08/05; Pt pain free with all exs. Pt likes KT. Pt has 2 appt remaining for therapy. 07/27/24: pt progressing well with skilled PT. no adverse reactions. continue to progress as tolerated. we will taper to 1x/week 07/22; Pt challenged with balance exs. NV review stairs. 07/17/24: pt progressing well with skilled PT. reduced pain overall. improved mechanics with stairs and has been able to negotiate them with better quality at school. 07/15; Pt less tender with STM. Pt fatigued after hip exs. Reduced c/o pain and improved mobility and function noted. 07/08; Pt tender med HS with STM with reduced sxs after RX. Pt needs v/c to stay on task. Pt liked rolling pin. Patient is a 58 year old R handed female who presents with s/s consistent with knee pain. 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 Patient past medical history includes obesity and HTN. Current impairments include pain, balance, flexibility, ROM, strength, activity tolerance and functional mobility. Functional limitations include decreased ability to walk, transfer, negotiate stairs, squat, bend and kneel. Patient is motivated with good rehab potential. Skilled PT will address impairments and functional limitations in order to achieve goals. Electronically signed by: Gallo Calabrese, PT Please sign and return to therapist. Thank you for your referral.
== END 2024-12-25 08:06 | disposition home or self-care (01) ==
LOC: HO.PTCHIC 14:00
PROVIDERS: PCP Internal Medicine; Visit Provider Nurse Practitioner Family
DX: S86.911D Strain of unspecified muscle(s) and tendon(s) at lower leg level, right leg, subsequent encounter (principal)
CPT/HCPCS: 97110; 97112; 97140; 97162; 97530

== ENCOUNTER 2024-10-31 10:36 | Outpatient (REF) | payer BC, SELFPAY ==
[2024-10-31 13:05] LABS: MANUAL DIFF FLAG NO
[2024-10-31 13:10] LABS: Basophils Percent Auto 0.4 % (0-2); Eosinophils Absolute Auto 0.3 X10*3/uL (0.0-0.4); Eosinophils Percent Auto 5.1 % (0-4); Hematocrit 41.2 % (37.0-47.0); Hemoglobin 13.4 g/dl (12.0-16.0); Imm Gran Abs Auto 0.02 X10*3/uL (0.00-0.03); Imm Gran Pct Auto 0.4 % (0.0-0.4); Lymphocytes Absolute Auto 1.4 X10*3/uL (1.2-4.9); Lymphocytes Percent Auto 27.6 % (20-40); Mean Corpuscular HGB Conc 32.5 g/dl (31.0-35.0); Mean Corpuscular Volume 82.9 fL (80.0-98.0); Mean Platelet Volume 9.3 fL (9.4-12.3); Monocytes Absolute Auto 0.4 X10*3/uL (0.1-1.2); Neutrophils Percent Auto 58.5 % (45-73); Platelet Count 210 X10*3/uL (160-400); Red Blood Count 4.97 X10*6/uL (4.20-5.50); Red Cell Distribution Width 13.7 % (11.0-16.0); White Blood Count 5.1 X10*3/uL (4.8-10.8)
[2024-10-31 13:27] LABS: Alanine Aminotransferase 24 U/L (0-31); Albumin Level 4.2 g/dL (3.5-5.0); Alkaline Phosphatase 69 U/L (39-117); Anion Gap 10 (12-20); Aspartate Amino Transferase 28 U/L (5-31); Bilirubin Total 0.9 mg/dL (0.0-1.0); Blood Urea Nitrogen 19 mg/dL (9-16); Calcium 9.2 mg/dL (8.4-10.2); Carbon Dioxide 28 mmol/L (22-29); Chloride 108 mmol/L (96-108); Cholesterol 128 mg/dL (<200); Estimated Glomerular Filt Rate > 60; Glucose Fasting 87 mg/dL (60-99); HDL Cholesterol 54 mg/dL (>40); LDL Cholesterol Calculated 58 mg/dL (<100); Potassium 4.6 mmol/L (3.3-5.1); Sodium 141 mmol/L (135-145); Total Protein 7.4 g/dL (6.5-8.0); Triglycerides 81 mg/dL (<150)
[2024-10-31 13:43] LABS: TSH reflex Free T4 1.89 uIU/mL (0.32-4.0); Vitamin D 25-OH Total 36.6 ng/mL (>30)
== END 2024-10-31 10:37 | disposition home or self-care (01) ==
LOC: HO.HMGCLDS 10:36
PROVIDERS: PCP Internal Medicine; Referring Provider Internal Medicine Cardiovascular Disease; Visit Provider Internal Medicine
DX: I10 Essential (primary) hypertension (principal); E78.5 Hyperlipidemia, unspecified; E66.3 Overweight
CPT/HCPCS: 36415; 80053; 80061; 82306; 84443; 85025

== ENCOUNTER 2024-11-03 14:16 | Outpatient (AMB) | payer BC, SELFPAY ==
--- NOTE | 2024-11-03 14:47 | MHC.OFFVIS ---
Vital Signs 11/03/24 14:48 Height 5 ft 3 in Weight 246 lb 14.684 oz BMI 43.7 BP 126/74 Blood Pressure Location Lt brachial Position Sitting Pulse 87 Intake Visit Reasons: r/s 09/21/24 1 yr followup w/ekg Intake Note: 1year follow-up with ekg feeling good Software Database Architect Required: No Allergies venlafaxine Allergy (Intermediate, Verified 08/13/24 10:10) palpitations/nausea Medication List - Last Reconciled 11/03/24 by Jame Harley MD acetaminophen 1,000 mg (2 x 500 mg) PO Q6H PRN cholecalciferol (vitamin D3) 25 mcg PO DAILY coenzyme Q10 (H2Q CoQ10) mg PO CPAP (CPAP Machine/Device) As directed docusate sodium (Colace) 200 mg PO BEDTIME PRN ibuprofen (Motrin IB) 200 mg PO Q6H PRN loratadine 10 mg PO DAILY olmesartan 10 mg (2 x 5 mg) PO DAILY pantoprazole 20 mg PO DAILY rosuvastatin 20 mg PO DAILY 90 days HPI Comments Details: Johnna comes for follow-up. He has been using a CPAP. She has not had any recurrent episodes of significant palpitations at nighttime. Taking all medications. LDL is very well optimized. Still not participate in regular physical activity. Also has had tough time losing weight. However trying to improve her lifestyle had lot of stress in her life that prevented her from participating this issues. Denies any exertional chest pain. No heart failure symptoms. 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, Housing: House Alcohol intake: current Alcohol intake frequency: holidays/special occasions only Patient Tobacco Use Status: Never used Tobacco e-Cigarette/Vaping Use: Never Used service: No Current occupational status: employed Cognitive needs: No Hearing needs: No Vision needs: Yes Review of Systems Const Denies chills, Denies fatigue, Denies fever(s), Denies frequent falls, Denies weakness, Denies weight gain and Denies weight loss ENT Denies dizziness Card Denies chest pain, Denies leg edema, Denies lightheadedness, Denies palpitations, Denies dyspnea, Denies dyspnea on exertion, Denies orthopnea and Denies other (loss of consciousness) Resp Denies cough, Denies dyspnea and Denies dyspnea on exertion GI Denies hematochezia and Denies change in stool character Musc Denies abnormal gait, Denies muscle weakness, Denies numbness, Denies radiating pain into limb and Denies tingling Neuro Denies abnormal gait, Denies dizziness, Denies frequent falls, Denies numbness, Denies tingling and Denies weakness Endo Denies fatigue and Denies palpitations Physical Exam Vital Signs: Last Vital Signs Pulse 87 11/03/24 14:48 BP 126/74 11/03/24 14:48 BMI result Body Mass Index 43.7 Const General: cooperative, comfortable, no acute distress, alert, awake and anxious Nutritional Appearance: obese morbidly obese Orientation/consciousness: patient oriented x3 Limitations: no limitations HEENT Head: Yes normocephalic and Yes atraumatic Neck Neck: Yes trachea midline, Yes supple and Yes no JVD Resp Effort & Inspection: normal respiratory effort Auscultation: clear to auscultation bilaterally Cardio Jugular venous distension: no JVD Palpation: normal PMI Rate: regular rate Rhythm: regular rhythm Heart sounds: S1 normal heart sound present, S2 normal heart sound present, no click, no gallops, no murmurs and no rubs GI Auscultation: normal bowel sounds Skin General skin exam: no rashes or lesions noted Neuro General: patient oriented x3 and no focal motor deficits Extrem General: Yes no clubbing, cyanosis or edema Office Procedures EKG Details: EKG shows normal sinus rhythm with poor R-wave progression most likely due to lead placement and body habitus [id number], Complete Assessment & Plan Assessment & Plan (1) Elevated coronary artery calcium score: Code(s): R93.1 - Abnormal findings on diagnostic imaging of heart and coronary circulation Category: Medical Plan: Patient with elevated coronary calcium score suggestive underlying coronary atherosclerosis. Continue aggressive risk factor modification. LDL is extremely well optimized on current therapy. Blood pressure is well optimized and management as below. Strongly recommend participate in aggressive weight loss program and improving lifestyle with increasing activity level. She understands agrees. No indication on aspirin therapy (2) Hypertension: Code(s): I10 - Essential (primary) hypertension Category: Medical Plan: Hypertension which is well optimized on current therapy and with treatment sleep apnea. Continue to participate in sleep apnea treatment which is important. Importance of good blood pressure control was discussed. Target goal blood pressure less than 130/84. Advised to monitor blood pressure at home maintain a log. Low-salt diet was discussed. Participate in aggressive weight loss as well as lifestyle modification. She understands. Follow up in the clinic in 2 years, sooner p.r.n.. Thank you for allowing me to partake in her care Medications: Changed From docusate sodium (Colace) 200 mg (2 x 100 mg) PO BEDTIME 60 caps 5RF To docusate sodium (Colace) 200 mg PO BEDTIME PRN Coding Level of Care Code Est Pt Level 4 (76611) Complex EM visit Add On G2211 Diagnoses Elevated coronary artery calcium score R93.1 Hypertension I10 CPT Codes EKG - CPT: 53898-[id number], Complete ([id number])
[2024-11-03 14:48] VITALS: BP 126/74; PULSE 87; BMI 43.7
== END 2024-11-03 15:38 | disposition home or self-care (01) ==
PROVIDERS: PCP Internal Medicine; Visit Provider Internal Medicine Cardiovascular Disease
DX: R93.1 Abnormal findings on diagnostic imaging of heart and coronary circulation (principal); I10 Essential (primary) hypertension
CPT/HCPCS: 93010; 99214

== ENCOUNTER → 2024-11-03 14:16 | Outpatient (BNVA) | payer BC, SELFPAY | PROVIDERS: PCP Internal Medicine; Visit Provider Internal Medicine Cardiovascular Disease | DX: R93.1 Abnormal findings on diagnostic imaging of heart and coronary circulation (principal); I10 Essential (primary) hypertension | CPT/HCPCS: 93005 ==

== ENCOUNTER 2024-11-09 08:27 | Outpatient (AMB) | payer BC, SELFPAY ==
[2024-11-09 08:31] VITALS: BP 134/78; PULSE 95; RESP 18; TEMP 37.3; O2SAT 97; BMI 43.6
--- NOTE | 2024-11-09 08:31 | A.OFFPC_ITS ---
Vital Signs 11/09/24 08:31 Height 5 ft 3 in Weight 246 lb BMI 43.6 BP 134/78 Blood Pressure Location Lt brachial Position Sitting Respiration 18 Pulse 95 Pulse Source Pulse Oximeter Temp 99.2 F Temp Source Oral Pulse Oximetry (%) 97 Oxygen Delivery Method Room Air Intake Visit Reasons: Annual PE Intake Note: Pt is here today for PE. Allergies venlafaxine Allergy (Intermediate, Verified 11/09/24 08:32) palpitations/nausea Medication List - Last Reconciled 11/09/24 by Yuliana Bernard MD acetaminophen 1,000 mg (2 x 500 mg) PO Q6H PRN cholecalciferol (vitamin D3) 25 mcg PO DAILY coenzyme Q10 (H2Q CoQ10) mg PO CPAP (CPAP Machine/Device) As directed docusate sodium (Colace) 200 mg PO BEDTIME PRN ibuprofen (Motrin IB) 200 mg PO Q6H PRN loratadine 10 mg PO DAILY olmesartan 10 mg (2 x 5 mg) PO DAILY pantoprazole 20 mg PO DAILY rosuvastatin 20 mg PO DAILY 90 days Tobacco use date assessed: 11/09/24 Dental Screening Dental Screen Date: 11/09/24 Did you have a dental visit in the last 12 months?: Yes Did you have a dental problem in the last 6 months where you did not have access to dental care?: No Was dental information given to patient?: Patient has dentist HPI Annual PE HPI Details Pt presents for PE. 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 1. Little interest or pleasure in doing things: not at all 2. Feeling down, depressed, or hopeless: not at all 3. Trouble falling or staying asleep, or sleeping too much: not at all 4. Feeling tired or having little energy: not at all 5. Poor appetite or overeating: not at all 6. Feeling bad about yourself - or that you are a failure or have let yourself or your family down: not at all 7. Trouble concentrating on things, such as reading the newspaper or watching television: not at all 8. Moving or speaking so slowly that other people could have noticed. Or the opposite - being so fidgety or restless that you have been moving around a lot more than usual: not at all 9. Thoughts that you would be better off or of hurting yourself in some way: not at all Total score: 0 Depression Screening Interpretation: Negative Depression Screening Done: Yes 37576 - PHQ-9 Billing: Yes Source: Developed by Drs. Dom Broderick, Lindsay Barone, Alexander Cisneros and colleagues, with an educational angelique from [employer]. Thrive Questionnaire Date Thrive assessed: 11/09/24 I am a: Patient What is your living situation today?: I have a steady place to live Within the past 12 months, did the food you bought not last and you didn't have the money to get more?: Never true Within the past 12 months, did you worry whether your food would run out before you got money to buy more?: Never true Do you have trouble paying for medicines?: No Do you have trouble getting transportation to medical appointments?: No Do you have trouble paying your heating and electricity bill?: No Do you have trouble taking care of your child, family member or friend?: No Do you have trouble with day-to-day activities such as bathing, preparing meals, shopping, managing finances, etc.?: No Are you currently unemployed and looking for a job?: No Are you interested in more education?: No Please select the resources that you would like help with: None Currently or been in a relationship where the following occur: No concerns reported THRIVE Score: 0 AUDIT C Alcohol Use Questionnaire (AUDIT-C) 1. How often do you have a drink containing alcohol?: Monthly or less 2. How many drinks containing alcohol do you have on a typical day when you are drinking?: 1 or 2 3. How often do you have six or more drinks on one occasion?: Never Total Score: 1 GENE-7 AMB Questionnaire GENE-7 Date GENE - 7 assessed: 11/09/24 Feeling nervous, anxious, or on edge: 0 = Not at all Not being able to stop or control worryin = Not at all Worrying too much about different things: 0 = Not at all Trouble relaxin = Not at all Being so restless that it is hard to sit still: 0 = Not at all Becoming easily annoyed or irritable: 0 = Not at all Feeling afraid as if something awful might happen: 0 = Not at all Total GENE-7 score (0-4 normal; 5-9 mild; 10-14 moderate; 15-21 severe): 0 Source: Developed by Drs. Dom Broderick, Lindsay Barone, Alexander Cisneros and colleagues, with an educational angelique from [employer]. GENE-7 Assessment Billing GENE-7 Assessment Tool: GENE-7 Assessment 81719 Review of Systems Const All systems reviewed & are unremarkable except as noted in HPI and below Eyes Reports no additional complaints ENT Reports no additional complaints Card Reports no additional complaints Resp Reports no additional complaints GI Reports no additional complaints Reports no additional complaints Musc Reports no additional complaints Physical exam (Primary Care) Vital Signs: Last Vital Signs Temp 99.2 F 11/09/24 08:31 Pulse 95 11/09/24 08:31 Resp 18 11/09/24 08:31 BP 134/78 11/09/24 08:31 Pulse Ox 97 11/09/24 08:31 Oxygen Delivery Method Room Air 11/09/24 08:31 BMI result Body Mass Index 43.6 Tobacco/Smoking Status: Tobacco use Status Tobacco use date assessed 11/09/24 11/09/24 08:41 Patient Tobacco Use Status Never used Tobacco 11/09/24 08:41 e-Cigarette/Vaping Use Never Used 11/09/24 08:41 PHQ-9: PHQ-9 Score PHQ-9: Total score 0 11/09/24 09:01 Depression Screening Interpretation: Negative Thrive Assessment: Date of Thrive Assessment Date Thrive assessed 11/09/24 11/09/24 08:41 Currently or been in a relationship where the following occur: No concerns reported Const General: no acute distress HENMT Head: Yes normal to inspection Ears: hearing grossly normal bilaterally General nose exam: Normal external nose present Face and sinus: Yes normal facial exam Mouth: Normal oral and palatal mucosa present Throat: Yes posterior oropharynx normal Eyes General: appearance normal, both eyes and all related structures Neck Neck: Yes no lymphadenopathy and Yes supple Resp Effort & Inspection: normal respiratory effort Auscultation: clear to auscultation bilaterally Cardio Rhythm: regular rhythm Heart sounds: S1 normal heart sound present and S2 normal heart sound present GI Inspection: Yes normal to inspection Palpation (GI): Soft to palpation Percussion: Yes normal to percussion Auscultation: normal bowel sounds Coding Level of Care Code Est Pt Prev Care 40-64y(83978) Diagnoses Sleep apnea treated with continuous positive airway pressure (CPAP) G47.30 Hyperlipemia E78.5 Hypertension I10 Annual physical exam Z00.00 Additional Codes GENE-7 Assessment Billing - GENE-7 Assessment Tool: GENE-7 Assessment 62006 ([id number]) PHQ-9 - 68020 - PHQ-9 Billing: Yes ([id number]) Assessment & Plan Assessment & Plan (1) Sleep apnea treated with continuous positive airway pressure (CPAP): Code(s): G47.30 - Sleep apnea, unspecified Category: Medical Plan: cont Cpap (2) Hyperlipemia: Code(s): E78.5 - Hyperlipidemia, unspecified Category: Medical Plan: cont statin (3) Hypertension: Code(s): I10 - Essential (primary) hypertension Category: Medical Plan: cont med (4) Annual physical exam: Code(s): Z00.00 - Encounter for general adult medical examination without abnormal findings Category: Medical Plan: well balanced diet, regular exercise, weight loss discussed with the patient. 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 Panel Fast 1 Year E78.5 - Hyperlipidemia, unspecified, I10 - Essential (primary) hypertension, Z00.00 - Encounter for general adult medical examination without abnormal findings Complete Blood Count Auto Diff 1 Year E78.5 - Hyperlipidemia, unspecified, I10 - Essential (primary) hypertension, Z00.00 - Encounter for general adult medical examination without abnormal findings TSH reflex Free T4 1 Year E78.5 - Hyperlipidemia, unspecified, I10 - Essential (primary) hypertension, Z00.00 - Encounter for general adult medical examination without abnormal findings Vitamin D 25-OH Total 1 Year E78.5 - Hyperlipidemia, unspecified, I10 - Essential (primary) hypertension, Z00.00 - Encounter for general adult medical examination without abnormal findings Medications: Refilled olmesartan 10 mg (2 x 5 mg) PO DAILY 180 tabs 3RF
== END 2024-11-09 09:29 | disposition home or self-care (01) ==
PROVIDERS: PCP Internal Medicine; Visit Provider Internal Medicine
DX: G47.30 Sleep apnea, unspecified (principal); E78.5 Hyperlipidemia, unspecified; I10 Essential (primary) hypertension; Z00.00 Encounter for general adult medical examination without abnormal findings

== ENCOUNTER → 2024-11-09 08:27 | Outpatient (BNVA) | payer BC, SELFPAY | PROVIDERS: PCP Internal Medicine; Visit Provider Internal Medicine | DX: Z00.00 Encounter for general adult medical examination without abnormal findings (principal); G47.30 Sleep apnea, unspecified; I10 Essential (primary) hypertension; E78.5 Hyperlipidemia, unspecified; Z79.899 Other long term (current) drug therapy; Z99.89 Dependence on other enabling machines and devices | CPT/HCPCS: 96127 ==

== ENCOUNTER 2024-12-03 12:23 | Outpatient (REF) | payer BC, SELFPAY | END 2024-12-03 12:24 | disposition home or self-care (01) | LOC: HO.MAMMO 12:23 | PROVIDERS: PCP Internal Medicine; Visit Provider Internal Medicine | DX: Z12.31 Encounter for screening mammogram for malignant neoplasm of breast (principal) | CPT/HCPCS: 77063; 77067 ==

== ENCOUNTER → 2024-12-03 12:30 | Outpatient (BNV) | payer BC, SELFPAY | PROVIDERS: PCP Internal Medicine; Visit Provider Internal Medicine | DX: Z12.31 Encounter for screening mammogram for malignant neoplasm of breast (principal) | CPT/HCPCS: 77063; 77067 ==

== ENCOUNTER 2024-12-04 17:17 | Emergency (ER) | payer BC, SELFPAY ==
--- NOTE | ~2024-12-04 | CT_ITS ---
CLINICAL HISTORY: L flank pain rad L abd. N V. hx stones CT abdomen and pelvis without contrast Comparison: US - PELVIS ULTRASOUND [id number] - 11/20/17 15:42 EST Findings: No consolidation or effusion. Cholelithiasis. Liver, spleen, pancreas, and adrenal glands are within normal limits. Left hydronephrosis without hydroureter. 4 mm nonobstructing calculus in the lower pole of the left kidney. No hydronephrosis on the right. No bowel obstruction, pneumoperitoneum, or pneumatosis. Normal appendix. Calcifications in the uterus, likely fibroids. 2 mm intraluminal calculus in the right posterior bladder, possibly a recently passed stone. The bones are intact. IMPRESSION: 1. Left hydronephrosis without hydroureter. 2. 4 mm nonobstructing calculus in the lower pole of the left kidney. No stones in the left ureter. 3. 2 mm right posterior bladder calculus, possibly a recently passed stone. This document has been electronically signed by: Mario South MD on 12/04/2024 18:56:56
[2024-12-04 17:45] VITALS: BP 165/96; PULSE 89; RESP 20; TEMP 35.8; O2SAT 99; BMI 43.0
--- NOTE | 2024-12-04 17:46 | ED_ITS ---
HPI - Back Pain/Injury General Chief Complaint: Abdominal Pain Stated Complaint: kidney stones attack? Time Seen by Provider: 12/05/24 00:26 Source: patient Limitations: no limitations History of Present Illness ED Provider: Chelly Guajardo PA-C HPI Narrative: 58-year-old female with a history of kidney stones, morbid obesity, sleep apnea, hypertension, hyperlipidemia, GERD, anxiety presents with left flank pain. Patient states she developed mid left flank pain this afternoon, a gradually began to migrate to the left lower quadrant. Associated nausea, vomiting and decreased urine output. Denies fever. Denies dysuria, she noticed that her urine is dark in color. Related Data Home Medications ?Medication ?Instructions ?Recorded ?Confirmed ibuprofen 200 mg tablet (Motrin IB) 200 mg PO Q6H PRN Pain 10/16/22 11/09/24 loratadine 10 mg tablet 10 mg PO DAILY 10/16/22 11/09/24 CPAP (CPAP Machine/Device) 12/28/22 11/09/24 cholecalciferol (vitamin D3) 25 25 mcg PO DAILY 06/05/24 11/09/24 mcg (1,000 unit) capsule coenzyme Q10 200 mg/gram oral mg PO 06/05/24 11/09/24 powder (H2Q CoQ10) pantoprazole 20 mg tablet,delayed 20 mg PO DAILY 08/13/24 11/09/24 release docusate sodium 100 mg capsule 200 mg PO BEDTIME PRN 11/03/24 11/09/24 (Colace) Previous Rx's ?Medication ?Instructions ?Recorded rosuvastatin 20 mg tablet 20 mg PO DAILY 90 days #90 tabs 05/13/24 acetaminophen 500 mg capsule 1,000 mg (2 x 500 mg) PO Q6H PRN 06/05/24 pain #30 caps olmesartan 5 mg tablet 10 mg (2 x 5 mg) PO DAILY #180 tabs 11/09/24 phenazopyridine 200 mg tablet 200 mg PO TID PRN pain #10 tabs 12/05/24 (Pyridium) Allergies Allergy/AdvReac Type Severity Reaction Status Date / Time venlafaxine Allergy Intermediate palpitation Verified 12/04/24 17:49 s/nausea Review of Systems 2 Review of Systems: Yes all other systems are reviewed and are negative Constitutional: Constitutional: Denies fatigue and Denies fever(s) Cardiovascular: Cardiovascular: Denies chest pain and Denies dyspnea Respiratory: Respiratory: Denies cough and Denies dyspnea Gastrointestinal: Gastrointestinal: Reports abdominal pain, Reports nausea and Reports vomiting Genitourinary: Genitourinary: Reports hematuria, Denies dysuria, Reports flank pain and Reports urinary hesitancy Musculoskeletal: Musculoskeletal: Denies back pain Endocrine: Endocrine: Denies fatigue [facility] Past Medical History Attestation statement: The following information was validated with the patient. 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, Housing: House Alcohol intake: current Alcohol intake frequency: holidays/special occasions only Patient Tobacco Use Status: Never used Tobacco Smoked in Last 30 Days: No e-Cigarette/Vaping Use: Never Used Use of substances other than those prescribed or required for medical reasons: No Advance Directives: No Advance Directives Information Provided: No Do you have a plan to hurt others: No Plan service: No Current occupational status: employed Cognitive needs: No Hearing needs: No Vision needs: Yes Physical Exam 2 Vital Signs: Vital Signs: Last Vital Signs Temp 98.5 F 12/04/24 22:31 Pulse 96 12/04/24 22:31 Resp 17 12/04/24 22:31 BP 146/81 H 12/04/24 22:31 Pulse Ox 98 12/04/24 22:31 O2 Del Method Room Air 12/04/24 22:31 BMI result Body Mass Index 43.0 Const: Other: Alert, well-appearing Orientation/consciousness: patient oriented x3 Resp: Effort & Inspection: normal respiratory effort Cardio: Other: Normal peripheral perfusion GI: Other: Soft nondistended nontender Back/Spine/Pelvis: Other: No CVA tenderness Skin: Other: Warm dry no rash Neuro: General: patient oriented x3, gait normal, no focal motor deficits and CN's II-XI intact bilaterally Psych: Other: Cooperative Course Course Course Narrative: This is a Rapid Medical Exam performed in triage by Iesha Caruso PA-C. Full HPI, ROS and PE to be performed by primary ED provider. 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 Admits sx feel similar to prior stones. Admits moving makes pain worse, did twist awkwardly to grab purse, & unsure if this caused sx PE: +L CVAT & L sided abdominal ttp, no rebound or guarding Plan: Labs, UA, CT/AP Medical Decision Making Medical Decision Making MDM Narrative: 58-year-old female with a history of kidney stones, morbid obesity, sleep apnea, hypertension, hyperlipidemia, GERD, anxiety presents with left flank pain. Patient states she developed mid left flank pain this afternoon, a gradually began to migrate to the left lower quadrant. Associated nausea, vomiting and decreased urine output. Denies fever. Denies dysuria, she noticed that her urine is dark in color. Problem: Known kidney stones History: Per patient I have considered the following differential diagnoses: UTI, pyelonephritis, renal colic, diverticulitis Plan: Given nature of symptoms and distribution of discomfort, I am considering renal colic. Screening labs including a urinalysis and a CT scan were obtained from triage. Thought about diverticulitis, however the patient has no focal left lower quadrant discomfort, the pain radiated to this region. Have results back, she passed a stone it is in the bladder. We will send with home care instructions. She is not having dysuria, she states when she had a kidney stone in the past, Pyridium helped to ease her bladder discomfort. We will give a dose of Pyridium and Toradol and she can be discharge. I have independently reviewed the following tests: Labs: No leukocytosis, not anemic, no electrolyte abnormality, renal function normal, urine not infected she is passing hematuria CT abdomen and pelvis:IMPRESSION: 1. Left hydronephrosis without hydroureter. 2. 4 mm nonobstructing calculus in the lower pole of the left kidney. No stones in the left ureter. 3. 2 mm right posterior bladder calculus, possibly a recently passed stone. Lab Data 12/04/24 18:50 12/04/24 18:49 Labs: Lab Results 12/04/24 12/04/24 12/04/24 Range/Units 18:42 18:49 18:50 WBC 10.2 (4.8-10.8) X10*3/uL RBC 4.81 (4.20-5.50) X10*6/uL Hgb 13.1 (12.0-16.0) g/dl Hct 39.3 (37.0-47.0) % MCV 81.7 (80.0-98.0) fL MCH 27.2 (27.0-33.0) pg MCHC 33.3 (31.0-35.0) g/dl RDW 13.9 (11.0-16.0) % Plt Count 197 (160-400) X10*3/uL MPV 9.0 L (9.4-12.3) fL Immature Gran % (Auto) 0.5 H (0.0-0.4) % Neut % (Auto) 84.8 H (45-73) % Lymph % (Auto) 9.8 L (20-40) % Cocke % (Auto) 3.8 (2-11) % Eos % (Auto) 0.8 (0-4) % Baso % (Auto) 0.3 (0-2) % Lymph # (Auto) 1.0 L (1.2-4.9) X10*3/uL [place]ke # (Auto) 0.4 (0.1-1.2) X10*3/uL Eos # (Auto) 0.1 (0.0-0.4) X10*3/uL Baso # (Auto) 0.0 (0.0-0.2) X10*3/uL Abs Immat Gran (auto) 0.05 H (0.00-0.03) X10*3/uL Absolute Neuts (auto) 8.7 H (2.0-8.3) x10*3/uL Absolute Nucleated RBC 0.000 (0.0-0.012) X10*3/uL Nucleated RBC % (auto) 0.0 (0.0-0.2) /100WBC Smear Tech's Comments VERIFIED Sodium 144 (135-145) mmol/L Potassium 4.1 (3.3-5.1) mmol/L Chloride 111 H (96-108) mmol/L Carbon Dioxide 22 (22-29) mmol/L Anion Gap 15 (12-20) BUN 25 H (9-16) mg/dL Creatinine 0.81 (0.5-1.4) mg/dL Estim Creat Clear Calc 90.2 Estimated GFR > 60 Random Glucose 101 (60-115) mg/dL Calcium 9.2 (8.4-10.2) mg/dL Magnesium 2.2 (1.6-2.6) mg/dL Total Bilirubin 0.8 (0.0-1.0) mg/dL Direct Bilirubin 0.3 (0.0-0.5) mg/dL AST 26 (5-31) U/L ALT 23 (0-31) U/L Alkaline Phosphatase 72 (39-117) U/L Total Protein 7.6 (6.5-8.0) g/dL Albumin 4.2 (3.5-5.0) g/dL Lipase 29 (8-78) U/L Urine Color Peach A Urine Appearance Cloudy Urine pH 6.0 (5.0-9.0) Ur Specific [place] 1.020 (1.005-1.025) Urine Protein 100 (2+) H (Neg-Trace) mg/dL Urine Glucose (UA) Negative (Negative) mg/dL Urine Ketones 15 (Negative) mg/dL Urine Blood Large (3+) H (Negative) Urine Nitrite Negative (Negative) Ur Leukocyte Esterase Trace H (Negative) Urine RBC >20 H (0-2) /HPF Urine WBC 6-10 H (0-5) /HPF Ur Squamous Epith Cells 6-10 (0-2) /HPF Urine Bacteria None Seen (None Seen) Hyaline Casts 0-2 (0-2) /LPF Discharge Plan Discharge Clinical Impression: Calculus of distal left ureter Patient Disposition: Home, Self-Care Instructions: Renal Colic (ED) Additional Instructions: You passed a 2 mm kidney stone it is in the bladder. You have a nonobstructing stone that measures 4 mm in the left kidney. All of your screening labs were normal. See home care instructions. Use the Pyridium as needed for bladder pain. Follow up with your primary care provider as needed. I provided you with a contact for our Urology Service. Prescriptions: New phenazopyridine [Pyridium] 200 mg tablet 200 mg PO TID PRN (Reason: pain) Qty: 10 0RF No Action rosuvastatin 20 mg tablet 20 mg PO DAILY 90 Days Qty: 90 3RF loratadine 10 mg tablet 10 mg PO DAILY ibuprofen [Motrin IB] 200 mg tablet 200 mg PO Q6H PRN (Reason: Pain) (DME) CPAP Machine/Device Device See Rx Instructions .Route Rx Instructions: As directed cholecalciferol (vitamin D3) 25 mcg (1,000 unit) capsule 25 mcg PO DAILY H2Q CoQ10 200 mg/gram powder PO acetaminophen 500 mg capsule 1,000 mg PO Q6H PRN (Reason: pain) Qty: 30 0RF docusate sodium [Colace] 100 mg capsule 200 mg PO BEDTIME PRN olmesartan 5 mg tablet 10 mg PO DAILY Qty: 180 3RF pantoprazole 20 mg tablet,delayed release (DR/EC) 20 mg PO DAILY Referrals: Tigre Lomas MD [Physician] - (renal stones) Print Language: Tanzanian
[2024-12-04 19:01] LABS: Hemoglobin 13.1 g/dl (12.0-16.0); Monocytes Absolute Auto 0.4 X10*3/uL (0.1-1.2); Monocytes Percent Auto 3.8 % (2-11); PLT CLUMP 1; Red Cell Distribution Width 13.9 % (11.0-16.0); SCAN SMEAR FLAG 1
[2024-12-04 19:03] LABS: Basophils Percent Auto 0.3 % (0-2); Eosinophils Absolute Auto 0.1 X10*3/uL (0.0-0.4); Eosinophils Percent Auto 0.8 % (0-4); Hematocrit 39.3 % (37.0-47.0); Imm Gran Abs Auto 0.05 X10*3/uL (0.00-0.03); Imm Gran Pct Auto 0.5 % (0.0-0.4); Lymphocytes Percent Auto 9.8 % (20-40); MANUAL DIFF FLAG SCAN; Mean Corpuscular HGB Conc 33.3 g/dl (31.0-35.0); Mean Corpuscular Hemoglobin 27.2 pg (27.0-33.0); Mean Corpuscular Volume 81.7 fL (80.0-98.0); Neutrophils Absolute Auto 8.7 x10*3/uL (2.0-8.3); Neutrophils Percent Auto 84.8 % (45-73); Red Blood Count 4.81 X10*6/uL (4.20-5.50)
[2024-12-04 19:13] LABS: Appearance Urine Cloudy; Color Urine Orange; Glucose Urine UA Negative (Negative); Leukocyte Esterase Urine Trace (Negative); Nitrite Urine Negative (Negative); UMIC TRIGGER UACC YES; Urine Blood Large (3+) (Negative); Urine Ketones 15 mg/dL (Negative); Urine Protein 100 (2+) mg/dL (Neg-Trace)
[2024-12-04 19:15] LABS: Bacteria Urine None Seen (None Seen); Hyaline Casts Urine 0-2 /LPF (0-2); RBC Urine >20 /HPF (0-2); UACC Culture Trigger YES
[2024-12-04 19:19] LABS: Alanine Aminotransferase 23 U/L (0-31); Albumin Level 4.2 g/dL (3.5-5.0); Alkaline Phosphatase 72 U/L (39-117); Anion Gap 15 (12-20); Aspartate Amino Transferase 26 U/L (5-31); Bilirubin Direct 0.3 mg/dL (0.0-0.5); Bilirubin Total 0.8 mg/dL (0.0-1.0); Blood Urea Nitrogen 25 mg/dL (9-16); Calcium 9.2 mg/dL (8.4-10.2); Carbon Dioxide 22 mmol/L (22-29); Chloride 111 mmol/L (96-108); Creatinine Clr Calc Pharmacy 90.2; Estimated Glomerular Filt Rate > 60; Glucose Random 101 mg/dL (60-115); Lipase 29 U/L (8-78); Magnesium 2.2 mg/dL (1.6-2.6); Potassium 4.1 mmol/L (3.3-5.1); Sodium 144 mmol/L (135-145); Total Protein 7.6 g/dL (6.5-8.0)
[2024-12-04 19:21] LABS: Platelet Count 197 X10*3/uL (160-400); SLIDE REVIEW VERIFIED; White Blood Count 10.2 X10*3/uL (4.8-10.8)
[2024-12-04 22:31] VITALS: BP 146/81; PULSE 96; RESP 17; TEMP 36.9; O2SAT 98
--- NOTE | 2024-12-05 00:32 | PC.NURSE ---
Pt is a&ox4, no signs of distress. Pt denies pain at this time Pts family at bedside Plan of care ongoing.
[2024-12-05] MEDS: Ketorolac Tromethamine 15 MG/ML VIAL IM (01:00)
[2024-12-05] MEDS: Phenazopyridine HCL 200 MG TABLET PO (01:00)
--- NOTE | 2024-12-05 01:07 | PC.NURSE ---
Pt medicated per [facility] Plan of care ongoing.
[2024-12-05 01:17] VITALS: BP 169/101; PULSE 84; RESP 14; TEMP 36.8; O2SAT 98
[2024-12-05 01:18] VITALS: BP 169/101; PULSE 84; RESP 14; TEMP 36.8; O2SAT 98
== END 2024-12-05 01:19 | disposition home or self-care (01) ==
PROVIDERS: Physician Assistant; Emergency Provider Internal Medicine; PCP Internal Medicine
DX: N20.1 Calculus of ureter (principal); R10.2 Pelvic and perineal pain; Z79.899 Other long term (current) drug therapy
CPT/HCPCS: 36415; 74176; 80048; 80076; 81001; 81003; 83690; 83735; 85025; 87086; 96372; 99284; J1885

== ENCOUNTER → 2024-12-04 17:47 | Outpatient (BNV) | payer BC, SELFPAY | PROVIDERS: PCP Internal Medicine; Visit Provider Radiology Diagnostic Radiology | DX: N13.30 Unspecified hydronephrosis (principal); N20.0 Calculus of kidney; N21.0 Calculus in bladder | CPT/HCPCS: 74176 ==

== ENCOUNTER 2025-01-27 14:37 | Outpatient (AMB) | payer BC, SELFPAY ==
--- NOTE | 2025-01-27 14:40 | A.OFFVIS_ITS ---
Intake Visit Reasons: kidney stones Intake Note: New patient presents today for initial visit for kidney stones Urology Medication:none Blood Thinner:none Antibiotic Allergies:none Allergies venlafaxine Allergy (Intermediate, Verified 01/27/25 14:58) palpitations/nausea Medication List - Last Reconciled 01/27/25 by WINNIE Baldwin-PETEY acetaminophen 1,000 mg (2 x 500 mg) PO Q6H PRN cholecalciferol (vitamin D3) 25 mcg PO DAILY coenzyme Q10 (H2Q CoQ10) mg PO CPAP (CPAP Machine/Device) As directed docusate sodium (Colace) 200 mg PO BEDTIME PRN ibuprofen (Motrin IB) 200 mg PO Q6H PRN loratadine 10 mg PO DAILY olmesartan 10 mg (2 x 5 mg) PO DAILY pantoprazole 20 mg PO DAILY rosuvastatin 20 mg PO DAILY 90 days HPI Comments Details: Johnna is a very pleasant 59-year-old female patient of Dr. Bernard. She has a past medical history of ascending aorta dilatation, anxiety, palpitations, GERD, sleep apnea, hypercholesteremia, and hypertension. She presents to the office today as a new patient for nephrolithiasis. In discussion with the patient today she reports approximately 2 months ago having seeked emergency room care for left-sided flank pain she had been experiencing at which time a CT of the abdomen was ordered and performed. These results were communicated and reviewed with the patient today. Left hydronephrosis without hydroureter. 4 mm nonobstructing calculus in the lower pole of the left kidney. No stones in the left ureter. 2 mm right posterior bladder calculus possibly recently passed stone. She discusses having recently started weight watchers and has intentionally lost 15 lb. She discusses a previous history of nephrolithiasis 10-14 years ago however never requiring surgical intervention. She currently denies any bothersome urinary issues or concerns. She denies urinary urgency, urinary frequency, incontinence, nocturia, hematuria, dysuria, foul smelling urine, changes to urinary stream, flank pain, fever, and or chills. She is happy with her current voiding parameters. We discussed at length potential causes of nephrolithiasis as well as further interventions and risks and benefits of these interventions. We discussed importance of increase in hydration relation to nephrolithiasis as well as overall health and well-being. All questions were answered. She otherwise offers no other issues or concerns at this time. 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, Housing: House Alcohol intake: current Alcohol intake frequency: holidays/special occasions only Patient Tobacco Use Status: Never used Tobacco e-Cigarette/Vaping Use: Never Used service: No Current occupational status: employed Cognitive needs: No Hearing needs: No Vision needs: Yes Review of Systems Const All systems reviewed & are unremarkable except as noted in HPI and below Physical Exam Const General: cooperative, healthy appearing, comfortable, no acute distress, well developed, alert and awake Nutritional Appearance: overweight Orientation/consciousness: patient oriented x3 HEENT Head: Yes normal to inspection, Yes normocephalic and Yes atraumatic Ears: hearing grossly normal bilaterally Eyes General: appearance normal, both eyes and all related structures Neck Neck: Yes normal visual inspection and Yes trachea midline Chest Chest palpation & inspection: normal inspection of the chest Resp Effort & Inspection: normal respiratory effort and able to speak in complete sentences Cardio Rate: regular rate GI Inspection: Yes normal to inspection General: Yes no CVA tenderness Back/Spine/Pelvis Back: no CVA tenderness Skin General skin exam: no rashes or lesions noted Neuro General: patient oriented x3 Extrem General: Yes normal to inspection Psych Appearance: grossly normal and well kempt Mental Status: mental status grossly normal Speech and movement: Normal speech and movement present and Clear speech present Affect: normal affect Attitude: cooperative Thought process: Normal thought process present Thought content: Normal thought content present Insight: Fair insight present (Psych) Judgement: Fair judgement present (Psych) Results AMB Urinalysis, Automated UA Leukoctes 0 Darren/uL Last Edit by Krista Cornelltiz on 01/27/25 16:22 UA Nitrite Negative Last Edit by Krista Cornelltiz on 01/27/25 16:22 UA Urobilinogen 0.2 mg/dL Last Edit by Krista Mtz on 01/27/25 16:22 UA Protein 15 mg/dL Last Edit by Krista Mtz on 01/27/25 16:22 UA pH 5.0 Last Edit by Krista Mtz on 01/27/25 16:22 UA Blood 25 Jerome/uL Last Edit by Krista Mtz on 01/27/25 16:22 UA Specific [place] 1.030 Last Edit by Krista Cornelltiz on 01/27/25 16:22 UA Ketone Negative Last Edit by Krista Cornelltiz on 01/27/25 16:22 UA Bilirubin 0 mg/dL Last Edit by Krista Cornelltiz on 01/27/25 16:22 UA Glucose 0 mg/dL Last Edit by Krista Cornelltiz on 01/27/25 16:22 Results Reviewed Results Reviewed: Laboratory Last Values Urine pH (Auto) 5.0 01/27/25 16:09 Specific [place] (Auto) 1.030 01/27/25 16:09 Urine Protein (Auto) 15 mg/dL 01/27/25 16:09 Glucose (UA)(Auto) 0 mg/dL 01/27/25 16:09 Urine Ketones (Auto) Negative 01/27/25 16:09 Urine Blood (Auto) 25 Jerome/uL 01/27/25 16:09 Urine Nitrite (Auto) Negative 01/27/25 16:09 Urine Bilirubin (Auto) 0 mg/dL 01/27/25 16:09 Urine Urobilinogen (Auto) 0.2 mg/dL 01/27/25 16:09 Leukocyte Esterase (Auto) 0 Darren/uL 01/27/25 16:09 Date of Service: 12/04/24 Procedure(s): CT abdomen pelvis wo IV con Findings: No consolidation or effusion. Cholelithiasis. Liver, spleen, pancreas, and adrenal glands are within normal limits. Left hydronephrosis without hydroureter. 4 mm nonobstructing calculus in the lower pole of the left kidney. No hydronephrosis on the right. No bowel obstruction, pneumoperitoneum, or pneumatosis. Normal appendix. Calcifications in the uterus, likely fibroids. 2 mm intraluminal calculus in the right posterior bladder, possibly a recently passed stone. The bones are intact. Assessment & Plan Assessment & Plan (1) Nephrolithiasis: Code(s): N20.0 - Calculus of kidney Category: Medical Plan In office urinalysis results reviewed the patient today; as noted above. Recent CT imaging results reviewed with the patient today; as noted above. She currently denies any bothersome urinary issues or concerns. She reports be happy with current voiding parameters We discussed importance of adequate hydration relation to nephrolithiasis as well as overall health and well-being. Start vitamin B6 as discussed and prescribed. We discussed adding 1 oz of lemon juice to water daily. Will obtain renal ultrasound in 4 months Follow-up in 4 months with imaging to be completed prior; or sooner with any issues, concerns, and or questions. Orders: Orders US renal BI 4 Months N20.0 - Calculus of kidney AMB Urinalysis Automated Today Z13.9 - Encounter for screening, unspecified Medications: New pyridoxine (vitamin B6) 100 mg PO DAILY 90 days 90 tabs 3RF N20.0 - Calculus of kidney Patient Instructions: The patient had an opportunity to ask questions regarding the treatment plan. All questions were answered. Physical exam, labs, and imaging were discussed and reviewed in detail. As well as risks, benefits, and discussion of treatment choices. No major barriers to understanding were identified. The patient expressed understanding and agreement with the above treatment plan. The patient was made aware they should contact our office by phone for worsening of their current condition, the appearance of new symptoms, or with any questions or concerns. Compliance is encouraged with any medications and follow up testing that is ordered. It is a privilege to be allowed the opportunity to participate in? your urological care.? Again, if you have any questions or concerns If you have any questions or concerns please do not hesitate to contact me. The office is [phone]. This note is constructed using voice recognition software. While every effort has been made to ensure accuracy turbine assembler errors may have been included. Yours sincerely, JOYCE Baldwin Coding Level of Care Code New Pt Level 3 (08790) Diagnoses Nephrolithiasis N20.0
== END 2025-01-27 15:35 | disposition home or self-care (01) ==
LOC: HO.HUSH 14:37
PROVIDERS: PCP Internal Medicine; Visit Provider Nurse Practitioner Family
DX: Z13.9 Encounter for screening, unspecified (principal); N20.0 Calculus of kidney
CPT/HCPCS: 99203

== ENCOUNTER → 2025-01-27 14:37 | Outpatient (BNVA) | payer BC, SELFPAY | PROVIDERS: PCP Internal Medicine; Visit Provider Nurse Practitioner Family | DX: N20.0 Calculus of kidney (principal) | CPT/HCPCS: 81003 ==

== ENCOUNTER 2025-05-07 21:41 | Emergency (ER) | payer BC, SELFPAY ==
--- NOTE | 2025-05-07 | ECG_ITS ---
Test Reason : CP Blood Pressure : */* mmHG Vent. Rate : 88 BPM Atrial Rate : 88 BPM P-R Int : 158 ms QRS Dur : 86 ms QT Int : 362 ms P-R-T Axes : 21 -9 32 degrees QTcB Int : 438 ms Normal sinus rhythm Normal ECG When compared with ECG of 19-May-2022 01:48, No significant change was found Referred By: Generic ED Physician Electronically Signed By: ANGEL MCPHERSON MD
--- NOTE | ~2025-05-07 | XR_ITS ---
CLINICAL HISTORY: cp cough 1 view chest x-ray Comparison: None provided Findings: The lungs are clear. Normal size heart. No acute fracture. IMPRESSION: 1. No acute findings. This document has been electronically signed by: Zoltan Sandoval MD on 05/07/2025 23:10:37
[2025-05-07 21:51] VITALS: BP 208/98; PULSE 91; RESP 16; TEMP 36.6; O2SAT 97; BMI 41.1
[2025-05-07 22:14] LABS: Hematocrit 40.8 % (37.0-47.0); Hemoglobin 13.6 g/dl (12.0-16.0); Imm Gran Abs Auto 0.03 X10*3/uL (0.00-0.03); Imm Gran Pct Auto 0.4 % (0.0-0.4); Lymphocytes Absolute Auto 2.0 X10*3/uL (1.2-4.9); MANUAL DIFF FLAG NO; Mean Corpuscular HGB Conc 33.3 g/dl (31.0-35.0); Mean Corpuscular Hemoglobin 27.1 pg (27.0-33.0); Mean Corpuscular Volume 81.3 fL (80.0-98.0); NRBC Abs Auto 0.000 X10*3/uL (0.0-0.012); NRBC Pct Auto 0.0 /100WBC (0.0-0.2); Platelet Count 224 X10*3/uL (160-400); Red Blood Count 5.02 X10*6/uL (4.20-5.50); White Blood Count 7.7 X10*3/uL (4.8-10.8)
[2025-05-07 22:16] VITALS: PULSE 88
[2025-05-07 22:22] LABS: INTERNATIONAL NORM RATIO 0.9 (0.9-1.1); Prothrombin Time 10.1 SEC (10.9-12.4)
[2025-05-07 22:27] LABS: Alanine Aminotransferase 30 U/L (0-31); Albumin Level 4.8 g/dL (3.5-5.0); Alkaline Phosphatase 78 U/L (39-117); Anion Gap 16 (12-20); Aspartate Amino Transferase 22 U/L (5-31); Blood Urea Nitrogen 17 mg/dL (9-16); Calcium 9.9 mg/dL (8.4-10.2); Carbon Dioxide 25 mmol/L (22-29); Chloride 107 mmol/L (96-108); Creatinine Clr Calc Pharmacy 81.8; Estimated Glomerular Filt Rate > 60; Potassium 4.1 mmol/L (3.3-5.1); Sodium 144 mmol/L (135-145); Total Protein 7.8 g/dL (6.5-8.0)
--- NOTE | 2025-05-07 22:32 | PC.NURSE ---
pt from home, a&ox3, respirations even and unlabored. pt reports sudden onset of substernal chest pain and left sided chest pain, reports intermittent nausea and epigastric pain. pt denies vomiting and diarrhea. pt reports pain worsens when she lays down and reports she feels as if she can not take a deep breath. pt sating 98% on room air, nsr on tele.
[2025-05-07 22:35] LABS: Troponin-I High Sensitivity < 2.7 ng/L (<3.5-17.0)
[2025-05-07 22:50] LABS: Resp Syncy Virus RNA Qual PCR NEGATIVE (Negative); SARS COV2 PCR INHOUSE NEGATIVE (Negative)
--- NOTE | 2025-05-07 23:36 | ED.CHESTPAIN ---
HPI - Chest Pain General Chief Complaint: Chest Pain Stated Complaint: chest pain, sob, palpitations Time Seen by Provider: 05/07/25 23:15 Source: patient Limitations: no limitations History of Present Illness ED Provider: Juan Guajardo PA-C HPI narrative: 59 y/o female with pmhx of HTN, hypercholesterolemia, nephrolithiasis, esophagitis, gastritis, and sleep apnea who presents to the ED with chest pain. Pt states she started having chest pain around 4 hours ago. She states the pain was localized to her chest and felt like pressure. She states it felt like her glasses were on her chest however nothing was on her chest. She states the pain has been constant since it began. She states she had a panic attack 3 years ago and went to therapy to learn breathing exercises. She attempted the breathing excercise however she did not have relief with them. She also reports SOB and difficulty taking a deep breath. She had covid 2 weeks ago after getting home from a cruise. She reports she took only half of her blood pressure medication today due to dropping one of the tablets. Denies abdominal pain, vomiting, diarrhea, and fever. Related Data Home Medications ?Medication ?Instructions ?Recorded ?Confirmed ibuprofen 200 mg tablet (Motrin IB) 200 mg PO Q6H PRN Pain 10/16/22 11/09/24 loratadine 10 mg tablet 10 mg PO DAILY 10/16/22 11/09/24 CPAP (CPAP Machine/Device) 12/28/22 11/09/24 cholecalciferol (vitamin D3) 25 25 mcg PO DAILY 06/05/24 11/09/24 mcg (1,000 unit) capsule coenzyme Q10 200 mg/gram oral mg PO 06/05/24 11/09/24 powder (H2Q CoQ10) docusate sodium 100 mg capsule 200 mg PO BEDTIME PRN 11/03/24 11/09/24 (Colace) Previous Rx's ?Medication ?Instructions ?Recorded rosuvastatin 20 mg tablet 20 mg PO DAILY 90 days #90 tabs 05/13/24 acetaminophen 500 mg capsule 1,000 mg (2 x 500 mg) PO Q6H PRN 06/05/24 pain #30 caps olmesartan 5 mg tablet 10 mg (2 x 5 mg) PO DAILY #180 tabs 11/09/24 pyridoxine (vitamin B6) 100 mg 100 mg PO DAILY 90 days #90 tabs 01/27/25 tablet pantoprazole 20 mg tablet,delayed 20 mg PO DAILY #30 tabs 02/25/25 release Allergies Allergy/AdvReac Type Severity Reaction Status Date / Time venlafaxine Allergy Intermediate palpitation Verified 05/07/25 21:56 s/nausea PMFSH Past Medical History Medical History (Reviewed 01/27/25 @ 15:34 by Jessenia Welsh [facility]) Ascending aorta dilatation Anxiety Palpitations GERD (gastroesophageal reflux disease) Sleep apnea Elevated cholesterol HTN (hypertension) Surgical History History of esophagogastroduodenoscopy (EGD) Hx of colonoscopy [place] teeth removed Family History Family History Mother Diabetes HTN (hypertension) Afib Father Diabetes HTN (hypertension) Hyperlipidemia Aortic aneurysm Family/Other Asthma Social History Social History 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:: , 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, 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 , 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, Housing: House Alcohol intake: current Alcohol intake frequency: holidays/special occasions only Patient Tobacco Use Status: Never used Tobacco Smoked in Last 30 Days: No e-Cigarette/Vaping Use: Never Used Use of substances other than those prescribed or required for medical reasons: No Advance Directives: No Advance Directives Information Provided: No Do you have a plan to hurt others: No Plan Patient : No service: No Current occupational status: employed Cognitive needs: No Hearing needs: No Vision needs: Yes Physical Exam Vital Signs: Vital Signs: Last Vital Signs Temp 98.2 F 05/08/25 00:05 Pulse 86 05/08/25 00:05 Resp 12 05/08/25 00:05 BP 177/100 H 05/08/25 00:05 Pulse Ox 98 05/08/25 00:05 O2 Del Method Room Air 05/08/25 00:05 BMI result Body Mass Index 41.1 Medical Decision Making Medical Decision Making MDM Narrative: 59 y/o female with pmhx of HTN, hypercholesterolemia, nephrolithiasis, esophagitis, gastritis, and sleep apnea who presents to the ED with chest pain. Pt states she started having chest pain around 4 hours ago. She states the pain was localized to her chest and felt like pressure. She states it felt like her glasses were on her chest however nothing was on her chest. She states the pain has been constant since it began. She states she had a panic attack 3 years ago and went to therapy to learn breathing exercises. She attempted the breathing excercise however she did not have relief with them. She also reports SOB and difficulty taking a deep breath. She had covid 2 weeks ago after getting home from a cruise. She reports she took only half of her blood pressure medication today due to dropping one of the tablets. Denies abdominal pain, vomiting, diarrhea, and fever. Problem: Obesity, hypertension, hyperlipidemia, known gastritis History: Per patient I have considered the following differential diagnoses: GERD/gastritis, ACS, anxiety/panic attack Plan: ACS was considered, the patient does have risk factors for coronary artery disease, screening labs including cardiac enzymes EKG were obtained. Given the fact that the patient ate ice cream, and developed symptoms while lying flat, this is likely reflux. In addition, the patient has anxiety, she admits that her ?anxiety got the better of her?. I do think it is contributory. I have independently reviewed the following tests: Labs: No leukocytosis, not anemic, no electrolyte abnormality, troponin negative EKG: Normal sinus rhythm, rate of 88, no ischemic changes no ectopy Chest x-ray:Findings: The lungs are clear. Normal size heart. No acute fracture. IMPRESSION: 1. No acute findings. Lab Data 05/07/25 22:06 05/07/25 22:06 Labs: Lab Results 05/07/25 Range/Units 22:06 WBC 7.7 (4.8-10.8) X10*3/uL RBC 5.02 (4.20-5.50) X10*6/uL Hgb 13.6 (12.0-16.0) g/dl Hct 40.8 (37.0-47.0) % MCV 81.3 (80.0-98.0) fL MCH 27.1 (27.0-33.0) pg MCHC 33.3 (31.0-35.0) g/dl RDW 14.2 (11.0-16.0) % Plt Count 224 (160-400) X10*3/uL MPV 8.7 L (9.4-12.3) fL Immature Gran % (Auto) 0.4 (0.0-0.4) % Neut % (Auto) 64.9 (45-73) % Lymph % (Auto) 25.3 (20-40) % [place] % (Auto) 6.4 (2-11) % Eos % (Auto) 2.5 (0-4) % Baso % (Auto) 0.5 (0-2) % Lymph # (Auto) 2.0 (1.2-4.9) X10*3/uL [place] # (Auto) 0.5 (0.1-1.2) X10*3/uL Eos # (Auto) 0.2 (0.0-0.4) X10*3/uL Baso # (Auto) 0.0 (0.0-0.2) X10*3/uL Abs Immat Gran (auto) 0.03 (0.00-0.03) X10*3/uL Absolute Neuts (auto) 5.0 (2.0-8.3) x10*3/uL Absolute Nucleated RBC 0.000 (0.0-0.012) X10*3/uL Nucleated RBC % (auto) 0.0 (0.0-0.2) /100WBC PT 10.1 L (10.9-12.4) SEC INR 0.9 (0.9-1.1) Sodium 144 (135-145) mmol/L Potassium 4.1 (3.3-5.1) mmol/L Chloride 107 (96-108) mmol/L Carbon Dioxide 25 (22-29) mmol/L Anion Gap 16 (12-20) BUN 17 H (9-16) mg/dL Creatinine 0.86 (0.5-1.4) mg/dL Estim Creat Clear Calc 81.8 Estimated GFR > 60 Random Glucose 131 H (60-115) mg/dL Calcium 9.9 D (8.4-10.2) mg/dL Total Bilirubin 0.9 (0.0-1.0) mg/dL AST 22 (5-31) U/L ALT 30 (0-31) U/L Alkaline Phosphatase 78 (39-117) U/L Troponin I High Sens < 2.7 (<3.5-17.0) ng/L Total Protein 7.8 (6.5-8.0) g/dL Albumin 4.8 (3.5-5.0) g/dL Influenza Type A (PCR) NEGATIVE (Negative) Influenza Type B (PCR) NEGATIVE (Negative) RSV RNA Qual (PCR) NEGATIVE (Negative) SARS-CoV-2 RNA (RT-PCR) NEGATIVE (Negative) Discharge Plan Discharge Clinical Impression: Chest pain, Anxiety Patient Disposition: Home, Self-Care Instructions: Noncardiac Chest Pain (ED), Anxiety (ED) Additional Instructions: All of your screening labs including a cardiac enzymes were normal. There were no concerning changes on the EKG in the chest x-ray is clear. Your discomfort is likely secondary to underlying indigestion with anxiety. Follow up with your primary care provider and registration manager as needed. Prescriptions: No Action rosuvastatin 20 mg tablet 20 mg PO DAILY 90 Days Qty: 90 3RF pantoprazole 20 mg tablet,delayed release (DR/EC) 20 mg PO DAILY Qty: 30 3RF loratadine 10 mg tablet 10 mg PO DAILY ibuprofen [Motrin IB] 200 mg tablet 200 mg PO Q6H PRN (Reason: Pain) (DME) CPAP Machine/Device Device See Rx Instructions .Route Rx Instructions: As directed cholecalciferol (vitamin D3) 25 mcg (1,000 unit) capsule 25 mcg PO DAILY H2Q CoQ10 200 mg/gram powder PO acetaminophen 500 mg capsule 1,000 mg PO Q6H PRN (Reason: pain) Qty: 30 0RF docusate sodium [Colace] 100 mg capsule 200 mg PO BEDTIME PRN olmesartan 5 mg tablet 10 mg PO DAILY Qty: 180 3RF pyridoxine (vitamin B6) 100 mg tablet 100 mg PO DAILY 90 Days Qty: 90 3RF Interventions: ED Discharge Assessment Last Done: 05/08/25 00:05 Discharge Date/Time: 05/08/25 00:06 Print Language: Azeri
[2025-05-07 23:55] VITALS: BP 177/100; PULSE 86; RESP 12; TEMP 36.8; O2SAT 98
[2025-05-08 00:05] VITALS: BP 177/100; PULSE 86; RESP 12; TEMP 36.8; O2SAT 98
== END 2025-05-08 00:06 | disposition home or self-care (01) ==
PROVIDERS: Emergency Provider Emergency Medicine; PCP Internal Medicine
DX: R07.9 Chest pain, unspecified (principal); F41.9 Anxiety disorder, unspecified; Z03.818 Encounter for observation for suspected exposure to other biological agents ruled out; I10 Essential (primary) hypertension; E78.00 Pure hypercholesterolemia, unspecified; G47.30 Sleep apnea, unspecified; K21.9 Gastro-esophageal reflux disease without esophagitis
CPT/HCPCS: 71045; 80053; 84484; 85025; 85610; 87637; 93005; 99283; 99285

== ENCOUNTER → 2025-05-07 21:43 | Outpatient (BNV) | payer BC, SELFPAY | PROVIDERS: Emergency Provider Emergency Medicine; PCP Internal Medicine; Visit Provider Internal Medicine Cardiovascular Disease | DX: R07.9 Chest pain, unspecified (principal) | CPT/HCPCS: 93010 ==

== ENCOUNTER → 2025-05-07 22:40 | Outpatient (BNV) | payer BC, SELFPAY | PROVIDERS: Emergency Provider Emergency Medicine; PCP Internal Medicine; Visit Provider Radiology Diagnostic Radiology | DX: R52 Pain, unspecified (principal); R05.9 Cough, unspecified | CPT/HCPCS: 71045 ==

== ENCOUNTER 2025-05-24 12:48 | Outpatient (REF) | payer BC, SELFPAY ==
--- NOTE | ~2025-05-24 | US_ITS ---
CLINICAL HISTORY: N20.0 - Calculus of kidney Renal ultrasound Comparison: CT/SR - CT ABDOMEN PELVIS WO IV CON - 12/04/24 17:52 EST Findings: The kidneys are normal in echotexture bilaterally. No right hydronephrosis or nephrolithiasis. Mild left hydronephrosis, also present on the prior study. Left nephrolithiasis in the lower pole measures 8 x 4 x 6 mm. The right kidney is normal in size, measuring 11.9cm in length. The left kidney is normal in size, measuring 12.1cm in length. Lower pole cyst measuring 0.7 x 0.5 x 0.8 cm. Impression: Mild left hydronephrosis which was also present on the prior study. Favor ureteropelvic junction obstruction /stenosis. A recently passed stone or infection may also be considered. Correlate with urinalysis. This document has been electronically signed by: Lillian Atkinson MD on 05/25/2025 17:09:21
== END 2025-05-24 12:49 | disposition home or self-care (01) ==
LOC: HO.HMGCX 12:48
PROVIDERS: PCP Internal Medicine; Visit Provider Nurse Practitioner Family
DX: N20.0 Calculus of kidney (principal)
CPT/HCPCS: 76775

== ENCOUNTER → 2025-05-24 12:50 | Outpatient (BNV) | payer BC, SELFPAY | PROVIDERS: PCP Internal Medicine; Visit Provider Radiology Diagnostic Radiology | DX: N20.0 Calculus of kidney (principal) | CPT/HCPCS: 76775 ==

== ENCOUNTER 2025-06-14 11:24 | Outpatient (REF) | payer BC, SELFPAY | END 2025-06-14 11:25 | disposition home or self-care (01) | LOC: HO.LAB 11:24 | PROVIDERS: PCP Internal Medicine; Visit Provider Nurse Practitioner Family | DX: N13.30 Unspecified hydronephrosis (principal); N13.5 Crossing vessel and stricture of ureter without hydronephrosis; R39.15 Urgency of urination; Z13.89 Encounter for screening for other disorder | CPT/HCPCS: 81003; 88112 ==

== ENCOUNTER 2025-06-14 11:24 | Outpatient (AMB) | payer BC, SELFPAY ==
--- NOTE | 2025-06-14 11:29 | MHC.OFFVIS ---
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: No Allergies venlafaxine Allergy (Intermediate, Verified 06/14/25 22:54) palpitations/nausea Medication List - Last Reconciled 06/14/25 by WINNIE Baldwin-PETEY acetaminophen 1,000 mg (2 x 500 mg) PO Q6H PRN cholecalciferol (vitamin D3) 25 mcg PO DAILY coenzyme Q10 (H2Q CoQ10) mg PO CPAP (CPAP Machine/Device) As directed ibuprofen (Motrin IB) 200 mg PO Q6H PRN loratadine 10 mg PO DAILY olmesartan 10 mg (2 x 5 mg) PO DAILY pantoprazole 20 mg PO DAILY pyridoxine (vitamin B6) 100 mg PO DAILY 90 days rosuvastatin 20 mg PO DAILY HPI Comments Details: Johnna is a very pleasant 59-year-old female patient of Dr. Bernard. She has a past medical history of ascending aorta dilatation, anxiety, palpitations, GERD, sleep apnea, hypercholesteremia, and hypertension. She presents to the office today for follow-up. Of note, patient was seen approximately 5 months ago at which time a renal ultrasound was ordered for further assessment evaluation as patient most recent CT 12/01 Left hydronephrosis without hydroureter. 4 mm nonobstructing calculus in the lower pole of the left kidney. No stones in the left ureter. 2 mm right posterior bladder calculus possibly recently passed stone. Most recent renal ultrasound results 05/31 noted the kidneys are normal in echotexture bilaterally. Mild left hydronephrosis which was also present on the prior study. Favor UPJ obstruction/stenosis. A recently passed stone or infection may also be considered per radiology report. She discusses her previous history of nephrolithiasis many years ago however never requiring surgical intervention. She currently denies any bothersome urinary issues or concerns. She denies urinary urgency, urinary frequency, incontinence, nocturia, hematuria, dysuria, foul smelling urine, changes to urinary stream, flank pain, fever, and or chills. She is happy with her current voiding parametes. We discussed importance of increase in hydration relation to nephrolithiasis as well as overall health and well-being. All questions were answered. She otherwise offers no other issues or concerns at this time. 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:: , 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, 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 , 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, Housing: House Alcohol intake: current Alcohol intake frequency: holidays/special occasions only Patient Tobacco Use Status: Never used Tobacco e-Cigarette/Vaping Use: Never Used service: No Current occupational status: employed Cognitive needs: No Hearing needs: No Vision needs: Yes Review of Systems Const All systems reviewed & are unremarkable except as noted in HPI and below Physical Exam Const General: cooperative, healthy appearing, comfortable, no acute distress, well developed, alert and awake Nutritional Appearance: overweight Orientation/consciousness: patient oriented x3 HEENT Head: Yes normal to inspection, Yes normocephalic and Yes atraumatic Ears: hearing grossly normal bilaterally Eyes General: appearance normal, both eyes and all related structures Neck Neck: Yes normal visual inspection and Yes trachea midline Chest Chest palpation & inspection: normal inspection of the chest Resp Effort & Inspection: normal respiratory effort and able to speak in complete sentences Cardio Rate: regular rate GI Inspection: Yes normal to inspection General: Yes no CVA tenderness Back/Spine/Pelvis Back: no CVA tenderness Skin General skin exam: no rashes or lesions noted Neuro General: patient oriented x3 Extrem General: Yes normal to inspection Psych Appearance: grossly normal and well kempt Mental Status: mental status grossly normal Speech and movement: Normal speech and movement present and Clear speech present Affect: normal affect Attitude: cooperative Thought process: Normal thought process present Thought content: Normal thought content present Insight: Fair insight present (Psych) Judgement: Fair judgement present (Psych) Results AMB Urinalysis, Automated UA Leukoctes 0 Darren/uL Last Edit by HERMINIA Benjamin on 06/14/25 11:45 UA Nitrite Negative Last Edit by Nikki Whitt [facility] on 06/14/25 11:45 UA Urobilinogen 0.2 mg/dL Last Edit by Nikki Whitt [facility] on 06/14/25 11:45 UA Protein 0 mg/dL Last Edit by Nikki Whitt [facility] on 06/14/25 11:45 UA pH 6.0 Last Edit by Nikki Whitt [facility] on 06/14/25 11:45 UA Blood 25 Jerome/uL Last Edit by Nikki Whitt [facility] on 06/14/25 11:45 UA Specific [place] 1.025 Last Edit by Nikki Whitt [facility] on 06/14/25 11:45 UA Ketone Negative Last Edit by Nikki Whitt [facility] on 06/14/25 11:45 UA Bilirubin 0 mg/dL Last Edit by Nikki Whitt [facility] on 06/14/25 11:45 UA Glucose 0 mg/dL Last Edit by Nikki Whitt [facility] on 06/14/25 11:45 Results Reviewed Results Reviewed: Laboratory Last Values Urine pH (Auto) 6.0 06/14/25 11:34 Specific [place] (Auto) 1.025 06/14/25 11:34 Urine Protein (Auto) 0 mg/dL 06/14/25 11:34 Glucose (UA)(Auto) 0 mg/dL 06/14/25 11:34 Urine Ketones (Auto) Negative 06/14/25 11:34 Urine Blood (Auto) 25 Jerome/uL 06/14/25 11:34 Urine Nitrite (Auto) Negative 06/14/25 11:34 Urine Bilirubin (Auto) 0 mg/dL 06/14/25 11:34 Urine Urobilinogen (Auto) 0.2 mg/dL 06/14/25 11:34 Leukocyte Esterase (Auto) 0 Darren/uL 06/14/25 11:34 Ordering Physician: Jessenia Welsh Date of Service: 05/24/25 Procedure(s): US renal BI Accession Number(s): [id number] cc: Yuliana Bernard MD; Jessenia Welsh~ CLINICAL HISTORY: N20.0 - Calculus of kidney Renal ultrasound Comparison: CT/SR - CT ABDOMEN PELVIS WO IV CON - 12/04/24 17:52 EST Findings: The kidneys are normal in echotexture bilaterally. No right hydronephrosis or nephrolithiasis. Mild left hydronephrosis, also present on the prior study. Left nephrolithiasis in the lower pole measures 8 x 4 x 6 mm. The right kidney is normal in size, measuring 11.9cm in length. The left kidney is normal in size, measuring 12.1cm in length. Lower pole cyst measuring 0.7 x 0.5 x 0.8 cm. Impression: Mild left hydronephrosis which was also present on the prior study. Favor ureteropelvic junction obstruction /stenosis. A recently passed stone or infection may also be considered. Correlate with urinalysis. Assessment & Plan Assessment & Plan (1) Hydronephrosis: Code(s): N13.30 - Unspecified hydronephrosis Category: Medical (2) UPJ (ureteropelvic junction) obstruction: Code(s): N13.5 - Crossing vessel and stricture of ureter without hydronephrosis Category: Medical Plan In office urinalysis results reviewed with the patient today; as noted above. Most recent renal imaging results reviewed with the patient today; as noted above. BUN and creatinine results reviewed with the patient today; as noted above. We did discussed potential causes of hydronephrosis versus UPJ obstruction; we discussed further workup in risks and benefits of these interventions. She currently denies any bothersome urinary issues or concerns. She reports be happy with current voiding parameters. Will obtain nuclear renal scan for further assessment evaluation. We discussed the importance of hydration relation to nephrolithiasis as well as overall health and well-being. Continue vitamin B6 as discussed and prescribed. Follow-up in 1-3 months with imaging and labs; or sooner with any issues, concerns, and or questions. Orders: Orders AMB Urinalysis Automated Today Z13.9 - Encounter for screening, unspecified NM renal flow w pharm int Today N13.30 - Unspecified hydronephrosis, N13.5 - Crossing vessel and stricture of ureter without hydronephrosis Blood Urea Nitrogen Today R39.15 - Urgency of urination Creatinine Today R39.15 - Urgency of urination Patient Instructions: The patient had an opportunity to ask questions regarding the treatment plan. All questions were answered. Physical exam, labs, and imaging were discussed and reviewed in detail. As well as risks, benefits, and discussion of treatment choices. No major barriers to understanding were identified. The patient expressed understanding and agreement with the above treatment plan. The patient was made aware they should contact our office by phone for worsening of their current condition, the appearance of new symptoms, or with any questions or concerns. Compliance is encouraged with any medications and follow up testing that is ordered. It is a privilege to be allowed the opportunity to participate in? your urological care.? Again, if you have any questions or concerns If you have any questions or concerns please do not hesitate to contact me. The office is [phone]. This note is constructed using voice recognition software. While every effort has been made to ensure accuracy education research analyst errors may have been included. Yours sincerely, JOYCE Baldwin Coding Level of Care Code Est Pt Level 3 (84575) Diagnoses Hydronephrosis N13.30 UPJ (ureteropelvic junction) obstruction N13.5
== END 2025-06-14 12:08 | disposition home or self-care (01) ==
LOC: HO.HUSH 11:24
PROVIDERS: PCP Internal Medicine; Visit Provider Nurse Practitioner Family
DX: N13.30 Unspecified hydronephrosis (principal); N13.5 Crossing vessel and stricture of ureter without hydronephrosis
CPT/HCPCS: 99213

== ENCOUNTER 2025-06-22 09:52 | Outpatient (AMB) | payer BC, SELFPAY ==
[2025-06-22 09:57] VITALS: BP 150/88; PULSE 84; BMI 40.8
--- NOTE | 2025-06-22 09:57 | MHC.OFFVIS ---
Vital Signs 06/22/25 09:57 Height 5 ft 3 in Weight 230 lb 9.656 oz BMI 40.8 BP 150/88 H Blood Pressure Location Lt brachial Position Sitting Pulse 84 Intake Visit Reasons: Esophagitis/Myesha PT Intake Note: Johnna presents to in office visit today in follow up of esophagitis. CC: Patient denies having any GI symptoms or concerns. She states that she needs a refill on Pantoprazole. 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 She is referred by Yuliana Bernard. PMX RAVEN Hypertension High cholesterol Nephrolithiasis with hydronephrosis Serrated colon polyp GERD Mild AAA Anxiety * SURGICAL HISTORY Colonoscopy-2023 her son= sessile polyp Esophagogastroduodenoscopy-2023 [facility] [place] teeth removal * ALLERGIES Venlafaxine * [facility] LABS: Laboratory Tests 05/07/25 22:06 WBC 7.7 Hgb 13.6 Hct 40.8 Plt Count 224 Estimated GFR > 60 Total Bilirubin 0.9 AST 22 ALT 30 Alkaline Phosphatase 78 SEEN IN 2023 BY FABIAN WOLFE LAST NOTE: Assessment & Plan (1) GERD (gastroesophageal reflux disease): Comment: pleasant- anxious-Years acid reflux,-good response w/ pantoprazole 40-will try to wean back to pantoprazole 20 mg Code(s): K21.9 - Gastro-esophageal reflux disease without esophagitis Category: Medical Plan: Trial pantoprazole 20 mg Reviewed reflux precautions Avoid weight gain Plan pantoprazole 20 mg trial- if sx recur- will increase back to 40 mg- Medications: New pantoprazole 20 mg PO QAM 90 tabs 6RF 90 days Patient Instructions: Trial pantoprazole 20 mg Reviewed reflux precautions Avoid weight gain Encouraged to call questions or concerns CORRESPONDENCE On 02/25/25 @ 07:23 Evelyn Gaitan Wrote To Koenig patient is scheduled to see you Jun 22 and is requesting Pantoprazole rx - please advise On 02/24/25 @ 15:13 Stella Mtz Wrote To Evelyn Gaitan Patient is calling looking for a refill. Please advise. 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 She is looking for a 90 day refill. pantoprazole 20 mg tablet,delayed release - 20 mg PO DAILY Last Rx reported: 08/13/24 [facility] Medical History Annual physical exam Severe sleep apnea Normal pelvic exam Esophagitis Encounter for screening colonoscopy Ascending aorta dilatation Anxiety Palpitations GERD (gastroesophageal reflux disease) Sleep apnea Elevated cholesterol HTN (hypertension) Surgical History History of esophagogastroduodenoscopy (EGD) Hx of colonoscopy [place] teeth removed Family History Mother Diabetes HTN (hypertension) Afib Father Diabetes HTN (hypertension) Hyperlipidemia Aortic aneurysm Family/Other Asthma Social History 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:: , 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, 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 , 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, Housing: House Alcohol intake: current Alcohol intake frequency: holidays/special occasions only Patient Tobacco Use Status: Never used Tobacco e-Cigarette/Vaping Use: Never Used service: No Current occupational status: employed Cognitive needs: No Hearing needs: No Vision needs: Yes Review of Systems Const Denies fatigue, Denies fever(s), Denies night sweats, Denies poor appetite and Reports weight loss (20 lb-weight watchers) Eyes Details: GLASSES Reports requires corrective lenses ENT Reports Normal hearing present, Denies dental pain, Denies dysphagia, Denies hearing loss, Denies mouth pain, Denies odynophagia, Denies throat swelling, Denies tongue swelling and Reports other (Dentition adequate) Card Reports no additional complaints Resp Reports no additional complaints GI Details: Denies abdominal pain, Denies melena, Denies bloating, Denies hematochezia, Denies constipation, Denies GI cramping, Denies dysphagia, Denies excessive flatus, Denies early satiety, Reports heartburn, Denies diarrhea, Denies nausea, Denies odynophagia, Denies vomiting and Denies hematemesis Skin/Breast Denies pruritus, Denies lesions, Denies rash and Denies jaundice Neuro Reports Normal hearing present and Denies Abnormal speech present Endo Denies fatigue Aller/Immun Denies throat swelling and Denies tongue swelling Physical Exam Vital Signs: Last Vital Signs Pulse 84 06/22/25 09:57 BP 150/88 H 06/22/25 09:57 BMI result Body Mass Index 40.8 Const General: cooperative, no acute distress, well developed and well groomed Nutritional Appearance: well nourished, obese and overweight Orientation/consciousness: oriented to person, oriented to place and oriented to time Limitations: No language barrier, ambulation with cane, ambulation with walker and wheelchair HEENT Head: Yes normocephalic and Yes atraumatic Eyes General: appearance normal, both eyes and all related structures Pupils: Equal, round and reactive pupils present Neck Neck: Yes normal visual inspection and Yes no lymphadenopathy Thyroid: Thyroid normal Resp Effort & Inspection: normal respiratory effort and able to speak in complete sentences Auscultation: clear to auscultation bilaterally Cardio Rate: regular rate Rhythm: regular rhythm Heart sounds: Normal, physiologic split S2 sound present Peripheral pulses: radial pulses present and posterior tibial pulses present GI Inspection: No distended, Yes Abdominal panniculus present, Yes obesity and Yes striae Palpation (GI): Soft to palpation, nontender, no guarding, not rigid and No hepatosplenomegaly present Percussion: Yes normal to percussion Auscultation: normal bowel sounds Rectal Exam - Female: deferred Skin Other: MULTIPLE NEVI NECK AND STOMACH General skin exam: no rashes or lesions noted, turgor normal, skin not dry, no jaundice, No spider nevi and no striae Rashes: no rashes Nails: normal Neuro General: oriented to person, oriented to place and oriented to time Cranial nerves: Yes Equal, round and reactive pupils present and Yes Normal hearing present Speech: No Abnormal speech present Extrem General: Yes normal to inspection, No clubbing, No cyanosis and No edema Psych Appearance: grossly normal and well kempt Mental Status: mental status grossly normal Speech and movement: Normal speech and movement present Affect: normal affect Attitude: cooperative Thought process: Normal thought process present and not confabulating Thought content: Normal thought content present Insight: Good insight present (Psych) Judgement: Good judgement present (Psych) Assessment & Plan Assessment & Plan (1) GERD (gastroesophageal reflux disease): Comment: pleasant- anxious-Years acid reflux,-good response w/ pantoprazole 40-will try to wean back to pantoprazole 20 mg Code(s): K21.9 - Gastro-esophageal reflux disease without esophagitis Category: Medical Plan 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 The pantoprazole continues to control her symptoms very well. She has gone from 40 mg down to 20 and this is controlling her symptoms well. She had very severe GERD when she initially presented, and was very anxious about having an endoscopy and a colonoscopy. However the procedures when extremely well and she is now huge advocate of colonoscopy as it ?easy procedure. ? She is aware that she should have her colonoscopy repeated in 5-7 years. Return office visit in 1 year Medications: Changed From pantoprazole 20 mg PO DAILY 30 tabs 6RF K21.9 - Gastro-esophageal reflux disease without esophagitis To pantoprazole 20 mg PO DAILY 90 tabs 1RF 90 days K21.9 - Gastro-esophageal reflux disease without esophagitis Refilled pantoprazole 20 mg PO DAILY 30 tabs 6RF Coding Level of Care Code Est Pt Level 3 (95615) Diagnoses GERD (gastroesophageal reflux disease) K21.9
== END 2025-06-22 10:27 | disposition home or self-care (01) ==
LOC: HO.HGI 09:53
PROVIDERS: PCP Internal Medicine; Visit Provider Nurse Practitioner
DX: K21.9 Gastro-esophageal reflux disease without esophagitis (principal)
CPT/HCPCS: 99213

== ENCOUNTER 2025-08-02 09:17 | Outpatient (AMB) | payer BC, SELFPAY ==
[2025-08-02 09:20] VITALS: BP 148/100; PULSE 78; O2SAT 97; BMI 41.8
--- NOTE | 2025-08-02 09:20 | MHC.OFFVIS ---
Vital Signs 08/02/25 09:20 Height 5 ft 3 in Weight 236 lb 4 oz BMI 41.8 BP 148/100 H Blood Pressure Location Rt brachial Position Sitting Pulse 78 Pulse Source Pulse Oximeter Pulse Oximetry (%) 97 Oxygen Delivery Method Room Air Intake Visit Reasons: F/U Intake Note: Patient presents follow up RAVEN. Compliance in chart(87/90days, >=4hrs-92%, Average Usage-6hr 11min, Med Pressure-8.1, Med Leaks-0.2, AHI-1.6) Accompanied by: Self / Same As Patient Allergies venlafaxine Allergy (Intermediate, Verified 08/02/25 09:25) palpitations/nausea HPI Comments Details: 59 year old female with h/o severe RAVEN on CPAP presents for 1 year follow up. RAVEN Compliance Report April 2025- Jul 2025 reviewed with pt. Total use is 87/90 days and >4 hours is 92% with average 6hours and 11 min Median Pressure is 8.1cmH20 to Med Leaks <0.2 and AHI 1.3 She washes the mask, rinses hoses, changes filters, and fills reservoir with water. 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 She had a panic attack, watching tv on the couch, she realized she took 1/2 of her bp med, then ate some ice cream which caused symptoms of GI upset and this led to panic with anxiety. She has white coat syndrome, recently [place] driving [place] the highway and this is a major accomplishment for her. She has RLS symptoms and walks around at night due to migrating pain from ankles to calves and her knees get achy. She lost 20lbs in December 2024 she was 249lbs and today she is 236lbs. She walks about 10,000 steps daily. She sleeps watching TV on the couch and then gets up at 2-3am to move to the bed then puts on her mask. She averages 6-8 hours of sleep per night and feels well rested upon waking in the morning, she is no longer fatigued. She has allergies, however and is not taking her meds as she used to and still feels well. She is napping less frequently during the day and denies TERRY, vision changes, forgetfulness, nausea and or vomiting. 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, 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 , 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, Housing: House Alcohol intake: current Alcohol intake frequency: holidays/special occasions only Patient Tobacco Use Status: Never used Tobacco e-Cigarette/Vaping Use: Never Used service: No Current occupational status: employed Cognitive needs: No Hearing needs: No Vision needs: Yes Review of Systems ENT Reports Normal hearing present Neuro Reports Normal hearing present Physical Exam Vital Signs: Last Vital Signs Pulse 78 08/02/25 09:20 BP 148/100 H 08/02/25 09:20 Pulse Ox 97 08/02/25 09:20 Oxygen Delivery Method Room Air 08/02/25 09:20 BMI result Body Mass Index 41.8 Const General: cooperative, healthy appearing and no acute distress Nutritional Appearance: obese Orientation/consciousness: patient oriented x3 Neck Neck: Yes full ROM, Yes trachea midline and Yes supple Resp Effort & Inspection: normal respiratory effort and able to speak in complete sentences Neuro General: patient oriented x3, moves all extremities and no focal motor deficits Cranial nerves: Yes CN's II-XII intact bilaterally, Yes Normal facial strength present, Yes Midline tongue present, Yes Symmetric palate elevation present, Yes Normal hearing present, Yes Ability to bilaterally rotate head present and Yes Ability to bilaterally elevate shoulders present Cognition (Neuro): normal cognition Gait exam (Neuro): Normal gait present Motor exam (neuro): 02/08 motor strength present throughout Psych Appearance: grossly normal Mental Status: mental status grossly normal Speech and movement: Normal speech and movement present Affect: normal affect Attitude: cooperative Thought process: Normal thought process present Thought content: Normal thought content present Insight: Good insight present (Psych) Results Reviewed Results Reviewed: Impression: Mild left hydronephrosis which was also present on the prior study. Favor ureteropelvic junction obstruction /stenosis. A recently passed stone or infection may also be considered. Correlate with urinalysis. RAVEN Compliance Report April 2025- Jul 2025 reviewed with pt. Total use is 87/90 days and >4 hours is 92% with average 6hours and 11 min Median Pressure is 8.1cmH20 to Med Leaks <0.2 and AHI 1.3 She washes the mask, rinses hoses, changes filters, and fills reservoir with water. Assessment & Plan Assessment & Plan (1) Sleep apnea treated with continuous positive airway pressure (CPAP): Code(s): G47.30 - Sleep apnea, unspecified Category: Medical Plan: RAVEN -Continue using CPAP as indicated, and cleaning all equipment at least weekly, -Sleep Hygiene, watch TV in the living room, however move into bedroom at a decent hour 10pm- jose alfredo. -Mg 200 mg daily is helpful for muscle relaxation and Bruxism, along with getting fitted for a mouth guard, TMJ issues will ask her dentist about pitting and refer to sleep dentistry if needed. -For stress eating, recommend seeing a application support developer for healthy eating habits and better caloric intake choices, she is on Weight Watchers. -Labs to r/o deficiencies anemias and Thyroid dysfunction. (2) Overweight: Code(s): E66.3 - Overweight Category: Medical (3) RLS (restless legs syndrome): Code(s): G25.81 - Restless legs syndrome Category: Medical Plan RAVEN -Continue using CPAP as indicated, and cleaning all equipment at least weekly, Sleep Hygiene, watch TV in the living room, however move into bedroom at a decent hour 10pm- jose alfredo. Mg 200 mg daily is helpful for muscle relaxation and Bruxism, along with getting fitted for a mouth guard, TMJ issues will ask her dentist about pitting and refer to sleep dentistry if needed. For stress eating, recommend seeing a application support developer for healthy eating habits and better caloric intake choices, she is on Weight Watchers. RLS? will monitor Labs to r/o deficiencies anemias and Thyroid dysfunction. Orders: Orders Ferritin Today E66.9 - Obesity, unspecified, G47.30 - Sleep apnea, unspecified Vitamin D 25-OH Total Today E66.3 - Overweight, E66.9 - Obesity, unspecified, G47.30 - Sleep apnea, unspecified Vitamin B12 and Folate Today E66.3 - Overweight, E66.9 - Obesity, unspecified, G47.30 - Sleep apnea, unspecified TSH reflex Free T4 Today E66.3 - Overweight, E66.9 - Obesity, unspecified, G47.30 - Sleep apnea, unspecified Hemoglobin A1c Today E66.3 - Overweight, E66.9 - Obesity, unspecified, G47.30 - Sleep apnea, unspecified Methylmalonic Acid Today E66.3 - Overweight, E66.9 - Obesity, unspecified, G47.30 - Sleep apnea, unspecified, G47.9 - Sleep disorder, unspecified, R53.83 - Other fatigue Homocysteine Today E66.3 - Overweight, E66.9 - Obesity, unspecified, G47.30 - Sleep apnea, unspecified, G47.9 - Sleep disorder, unspecified, R53.83 - Other fatigue Medications: Refilled pyridoxine (vitamin B6) 100 mg PO DAILY 90 tabs 3RF 90 days N20.0 - Calculus of kidney Patient Instructions: Please complete the following fasting labs to rule out deficiencies. CBC/CMP/ B12/ Vit D/ TSH/ Homocysteine and MMA/ Ferritin. Sleep Hygiene provided: set a scheduled bedtime and wake time to help regulate the circadian rhythm and balance the release of pituitary hormones. Sleep in a dark room, temperatures below 68 degrees, and no devices n bed. Limit caffeinated products 6 hours prior to bed, and limit fluids 2-4 hours prior to bed. Gentle night yoga, diffusing essential oils, and playing soft music can be relaxing. Coding Level of Care Code Est Pt Level 4 (10609) Diagnoses Sleep apnea treated with continuous positive airway pressure (CPAP) G47.30 Overweight E66.3 RLS (restless legs syndrome) G25.81
== END 2025-08-02 10:05 | disposition home or self-care (01) ==
LOC: HO.HSMS 09:18
PROVIDERS: PCP Internal Medicine; Visit Provider Physician Assistant Medical
DX: G47.30 Sleep apnea, unspecified (principal); E66.3 Overweight; G25.81 Restless legs syndrome
CPT/HCPCS: 99214

== ENCOUNTER → 2025-08-12 13:25 | Outpatient (REF) | payer BC, SELFPAY ==
--- NOTE | ~2025-08-12 | NM_ITS ---
EXAMINATION: NM KIDNEY FLOW FUNCTION WITH RX HISTORY: N13.30 - Unspecified hydronephrosis. TECHNIQUE: A renogram and renal scan were performed following intravenous administration of 10 mCi technetium 99m-DTPA. The patient received 40 mg IV Lasix approximately 30 minutes after injection of the radiopharmaceutical. COMPARISON: Correlation is made with a renal ultrasound dated 05/24/[address] of the abdomen without contrast dated 12/04/2024. FINDINGS: There is symmetric blood flow to both kidneys. Symmetric uptake of the radiopharmaceutical is seen bilaterally. The estimated split uptake is 48.4% on the left and 51.6% on the right. There is excretion into the bilateral renal collecting systems. There is washout of the renal collecting systems bilaterally with a half-life of approximately 33.5 minutes on the left and 38.9 minutes on the right. NM/NM renal flow w pharm int IMPRESSION: No evidence of ureteral obstruction. Electronically signed by: Dom Andre MD 08/12/2025 03:18 PM EST
== END ==
LOC: HO.NUCMED 13:25
PROVIDERS: PCP Internal Medicine; Visit Provider Nurse Practitioner Family
DX: N13.5 Crossing vessel and stricture of ureter without hydronephrosis (principal); N13.30 Unspecified hydronephrosis
CPT/HCPCS: 78708; A9539; J1938

== ENCOUNTER → 2025-08-12 13:26 | Outpatient (BNV) | payer BC, SELFPAY | PROVIDERS: PCP Internal Medicine; Visit Provider Radiology Diagnostic Radiology | DX: N13.30 Unspecified hydronephrosis (principal) | CPT/HCPCS: 78708 ==

== ENCOUNTER 2025-08-14 10:54 | Outpatient (REF) | payer BC, SELFPAY ==
[2025-08-14 13:56] LABS: Blood Urea Nitrogen 18 mg/dL (9-16); Estimated Glomerular Filt Rate > 60
== END 2025-08-14 10:55 | disposition home or self-care (01) ==
LOC: HO.HMGCLDS 10:54
PROVIDERS: PCP Internal Medicine; Visit Provider Nurse Practitioner Family
DX: R39.15 Urgency of urination (principal)
CPT/HCPCS: 36415; 82565; 84520

== ENCOUNTER 2025-08-17 08:59 | Outpatient (REF) | payer BC, SELFPAY ==
[2025-08-17 11:25] LABS: Ferritin 60 ng/mL (10-250)
[2025-08-17 11:29] LABS: Folate 6.4 ng/mL (> or = 4.0); Vitamin B12 376 pg/mL (200-900)
== END 2025-08-17 09:00 | disposition home or self-care (01) ==
LOC: HO.LAB 08:59
PROVIDERS: PCP Internal Medicine; Visit Provider Physician Assistant Medical
DX: E66.3 Overweight (principal); E66.9 Obesity, unspecified; G47.30 Sleep apnea, unspecified; G47.9 Sleep disorder, unspecified; R53.83 Other fatigue; Z13.1 Encounter for screening for diabetes mellitus; Z13.6 Encounter for screening for cardiovascular disorders; Z13.21 Encounter for screening for nutritional disorder
CPT/HCPCS: 36415; 82306; 82607; 82728; 82746; 83036; 83090; 83921; 84443

== ENCOUNTER 2025-08-18 14:45 | Outpatient (AMB) | payer BC, SELFPAY ==
--- NOTE | 2025-08-18 14:56 | A.OFFVIS_ITS ---
Intake Visit Reasons: 2m/Nuclear scan/labs Intake Note: Patient is present for 2M/NUCLEAR SCAN/LABS Urology Medication:VITAMIN B6 Antibiotic Allergy:NONE Blood Thinner:NONE Side Seam Machine Operator Required: No Allergies venlafaxine Allergy (Intermediate, Verified 08/18/25 15:05) palpitations/nausea HPI Comments Details: Johnna is a very pleasant 59-year-old female patient of Dr. Bernard. She has a past medical history of ascending aorta dilatation, anxiety, palpitations, GERD, sleep apnea, hypercholesteremia, and hypertension. She presents to the office today for follow-up of her nephrolithiasis and question of mild hydronephrosis verses UPJ obstruction. In discussion with the patient today she reports to be doing and feeling well. She denies having had any bothersome urinary issues or concerns since her last office visit here. Recent nuclear renal scan results reviewed with the patient today. 08/31 no evidence of ureteral obstruction. The estimated split uptake is 48.4 on the left and 51.6 on the right. There is symmetrical blood flow to both kidneys. There is washout of the renal collecting systems bilaterally with a half-life of approximately 33.5 minutes on the left and 38.9 minutes on the right. Labs are as follows: BUN: 10/30 15, 04/29 12, 10/31 19, 12/01 25, 05/31 17, 08/31 18 Creatinine: 10/30 0.80, 04/29 0.80, 10/31 0.68, 12/01 0.81, 05/31 0.86, 08/31 0.74 She discusses her previous history of nephrolithiasis many years ago however never requiring surgical intervention. She currently denies any bothersome urinary issues or concerns. She denies urinary urgency, urinary frequency, incontinence, nocturia, hematuria, dysuria, foul smelling urine, changes to urinary stream, flank pain, fever, and or chills. She is happy with her current voiding parametes. We discussed importance of increase in hydration relation to nephrolithiasis as well as overall health and well-being. Unable to obtain urine for urinalysis as patient unable to void. She reports compliance with vitamin B6 as prescribed. She discusses having recently followed up with sleep medicine and has been diagnosed with sleep apnea. All questions were answered. She otherwise offers no other issues or concerns at this time. 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 , 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, Housing: House Alcohol intake: current Alcohol intake frequency: holidays/special occasions only Patient Tobacco Use Status: Never used Tobacco e-Cigarette/Vaping Use: Never Used service: No Current occupational status: employed Cognitive needs: No Hearing needs: No Vision needs: Yes Review of Systems Const All systems reviewed & are unremarkable except as noted in HPI and below Physical Exam Const General: cooperative, healthy appearing, comfortable, no acute distress, well developed, alert and awake Nutritional Appearance: overweight Orientation/consciousness: patient oriented x3 Limitations: no limitations HEENT Head: Yes normal to inspection, Yes normocephalic and Yes atraumatic Ears: hearing grossly normal bilaterally Eyes General: appearance normal, both eyes and all related structures Neck Neck: Yes normal visual inspection and Yes trachea midline Chest Chest palpation & inspection: normal inspection of the chest Resp Effort & Inspection: normal respiratory effort and able to speak in complete sentences Cardio Rate: regular rate GI Inspection: Yes normal to inspection General: Yes no CVA tenderness Back/Spine/Pelvis Back: no CVA tenderness Skin General skin exam: no rashes or lesions noted Neuro General: patient oriented x3 Extrem General: Yes normal to inspection Psych Appearance: grossly normal and well kempt Mental Status: mental status grossly normal Speech and movement: Normal speech and movement present and Clear speech present Affect: normal affect Attitude: cooperative Thought process: Normal thought process present Thought content: Normal thought content present Insight: Fair insight present (Psych) Judgement: Fair judgement present (Psych) Results Reviewed Results Reviewed: Date of Service: 08/12/25 Procedure(s): NM renal flow w pharm int FINDINGS: There is symmetric blood flow to both kidneys. Symmetric uptake of the radiopharmaceutical is seen bilaterally. The estimated split uptake is 48.4% on the left and 51.6% on the right. There is excretion into the bilateral renal collecting systems. There is washout of the renal collecting systems bilaterally with a half-life of approximately 33.5 minutes on the left and 38.9 minutes on the right. IMPRESSION: No evidence of ureteral obstruction. Assessment & Plan Assessment & Plan (1) Hydronephrosis: Code(s): N13.30 - Unspecified hydronephrosis Category: Medical (2) UPJ (ureteropelvic junction) obstruction: Code(s): N13.5 - Crossing vessel and stricture of ureter without hydronephrosis Category: Medical (3) Nephrolithiasis: Code(s): N20.0 - Calculus of kidney Category: Medical Plan Unable to obtain urine for urinalysis today as patient unable to void Most recent nuclear renal scan results reviewed with the patient today; as noted above. BUN and creatinine results reviewed with the patient today; as noted above. Will continue with surveillance monitoring. She currently denies any bothersome urinary issues or concerns. She reports be happy with current voiding parameters. Will obtain renal ultrasound in 6 months. Follow-up in 6 months with imaging; or sooner with any issues, concerns, and or questions. Orders: Orders AMB Urinalysis Automated Today Z13.9 - Encounter for screening, unspecified US renal BI 6 Months N20.0 - Calculus of kidney Patient Instructions: The patient had an opportunity to ask questions regarding the treatment plan. All questions were answered. Physical exam, labs, and imaging were discussed and reviewed in detail. As well as risks, benefits, and discussion of treatment choices. No major barriers to understanding were identified. The patient expressed understanding and agreement with the above treatment plan. The patient was made aware they should contact our office by phone for worsening of their current condition, the appearance of new symptoms, or with any questions or concerns. Compliance is encouraged with any medications and follow up testing that is ordered. It is a privilege to be allowed the opportunity to participate in? your urological care.? Again, if you have any questions or concerns If you have any questions or concerns please do not hesitate to contact me. The office is [phone]. This note is constructed using voice recognition software. While every effort has been made to ensure accuracy investigation division sergeant errors may have been included. Yours sincerely, JOYCE Baldwin Coding Level of Care Code Est Pt Level 3 (55103) Complex EM visit Add On G2211 Diagnoses Hydronephrosis N13.30 UPJ (ureteropelvic junction) obstruction N13.5 Nephrolithiasis N20.0
== END 2025-08-18 15:56 | disposition home or self-care (01) ==
LOC: HO.HUSH 14:46
PROVIDERS: PCP Internal Medicine; Visit Provider Nurse Practitioner Family
DX: N13.30 Unspecified hydronephrosis (principal); N13.5 Crossing vessel and stricture of ureter without hydronephrosis; N20.0 Calculus of kidney
CPT/HCPCS: 99213